=== PATIENT | female | born 1930 | race Caucasian/White ===

== ENCOUNTER 2019-03-07 03:28 | Emergency (ER) | payer OTHER, MEDICAID ==
[~2019-03-07] VITALS: Ht 157.5 cm; Wt 62.0 kg
[~2019-03-07 03:28] MED LIST: ACETAMINOPHEN325 M3 PO; ALBUTEROL2.5 MG/32; ALPHAGAN P10 ML; ALPHAGAN P10 ML OP; ALPHAGAN P5 ML OPHTHALMIC; ASA81BEC PO; ASPIRIN EC81 M1; ASPIRIN EC81 M1 PO; BUSPIRONE HCL5 MG PO; CALCIUM 500 +1 EAC5; CALCIUM 500 +1 EAC5 PO; CARVEDILOL12.5 MG PO; CARVEDILOL25 MG; CIPRO500 MG PO; COLACE100 MG PO; COREG CR20 MG PO; DOXYCYCLINE 10100 M1 PO; DUONEB 2.5-0.5 M3 ML INH; EASY IRON; EASY IRON PO; FISH OIL 1,0001 EAC5; FISH OIL 1,001000 M1 PO; FUROSEMIDE 20 M20 M1; HYDROCHLOROTHIA25 M1; HYDROCHLOROTHIA25 M1 PO; HYDROCODON-ACE1 EAC7 PO; HYDROCODONE-AP1 EAC6 PO; K-DUR 20 MEQ T20 MEQ PO; LASIX 20 MG TAB20 MG PO; LEVAQUIN 750 M750 MG PO; LEVOFLOXACIN250 MG PO; LIDOPATCH1 EACH TOP; LUMIGAN2.5 M1; LUMIGAN2.5 M1 OPHTHALMIC; MIRALAX17 GM PO; OXYGEN; PAIN & FEVER325 MG PO; POTASSIUM20; PREDNISONE; PULMICORT0.5 MG/2 M; PULMICORT0.5 MG/22 INH; SIMVASTATIN40 MG PO; TRAMADOL 50 MG50 MG PO; TRUSOPT5 ML; VESICARE10 M1 PO; VIT C-BIOFLAVO1 EACH PO; VITAMIN E400 UNIT PO; VITAMIN E600 UNIT PO; VITAMINC500 PO; VITCB500GO; VYTORIN 10-201 EACH; VYTORIN 10-201 EACH PO; XALATAN2.5 ML OPHTHALMIC; XARELTO10 MG PO; ZESTRIL10 MG PO; [UNRECOGNIZED DRUG - CODE] PO
[2019-03-07 06:38] VITALS: BP 170/64
--- NOTE | 2019-03-07 09:57 | EKG ---
[place] [address] ELECTROCARDIOGRAM REPORT Name: CLEMENTEJOSE ROBERTOPHOEBESARAH Lissett Room: [facility]#: [id number] Admission: 03/07/19 Attend Phys: Discharge: 03/07/19 Date of : 34 Report #: [id number] THIS REPORT FOR: //name// [facility] ED Test Date: 2019-03-07 Test Time: 05:16:29 Pat Name: SARAH COSTELLO Department: Room: Gender: F Maintenance Service Technician: LILIANA : 1930 Requested By: Brittany Mckeon Order Number: [id number] MD: Lewis Fonseca Measurements Intervals [place] Rate: 85 P: 83 PA: 173 QRS: 44 QRSD: 107 T: 2 QT: 383 QTc: 456 Interpretive Statements Sinus rhythm artifact noted Inferior infarct, age indeterminate Lateral leads are also involved Compared to ECG 05/24/2016 19:23:33 Myocardial infarct finding still present Electronically Signed On 03-07-2019 9:57:19 CDT by Lewis Fonseca [email or web address] <ELECTRONICALLY SIGNED> By: Lewis Fonseca MD, [facility] 03/07/19 0957 0516 Lewis Fonseca MD, [facility] /EPI
== END 2019-03-07 06:42 | disposition home or self-care (01) ==
LOC: M.ERS 03:28
DX: S61.412A Laceration without foreign body of left hand, initial encounter (principal); S00.83XA Contusion of other part of head, initial encounter; J44.9 Chronic obstructive pulmonary disease, unspecified; Z95.5 Presence of coronary angioplasty implant and graft; Z87.891 Personal history of nicotine dependence; W01.198A Fall on same level from slipping, tripping and stumbling with subsequent striking against other object, initial encounter; Y93.89 Activity, other specified; Y92.89 Other specified places as the place of occurrence of the external cause; Y99.8 Other external cause status

== ENCOUNTER 2019-03-22 15:54 | Emergency (ER) | payer MEDICARE, MEDICAID ==
[~2019-03-22] VITALS: Ht 152.4 cm; Wt 54.4 kg
[2019-03-22] MEDS ORDERED: NORCO 5-325 TA1 EAC1 PO (17:58)
[2019-03-22 18:22] VITALS: BP 183/76
== END 2019-03-22 18:21 | disposition home or self-care (01) ==
LOC: M.ERS 15:54
DX: S32.89XA Fracture of other parts of pelvis, initial encounter for closed fracture (principal); J44.9 Chronic obstructive pulmonary disease, unspecified; Z87.891 Personal history of nicotine dependence; W01.0XXA Fall on same level from slipping, tripping and stumbling without subsequent striking against object, initial encounter; Y93.89 Activity, other specified; Y92.89 Other specified places as the place of occurrence of the external cause; Y99.8 Other external cause status

== ENCOUNTER 2020-05-04 18:23 | Emergency (ER) | payer MEDICARE, MEDICAID ==
[~2020-05-04] VITALS: Ht 157.5 cm; Wt 45.4 kg
[~2020-05-04 18:23] MED LIST changes: +NORCO 5-325 TA1 EAC1 PO
[2020-05-04] MEDS ORDERED: TOVIAZ4 M1 PO (18:34)
[2020-05-04] MEDS ORDERED: ALPRAZOLAM XR3 MG PO (18:34)
[2020-05-04] MEDS ORDERED: CARVEDILOL12.5 MG PO (18:34)
[2020-05-04 19:30] LABS: ABSOLUTE LYMPHOCYTES 1.4 thou/uL (0.8-5.3); ABSOLUTE MONOCYTES 1.1 thou/uL (0.0-1.2); ABSOLUTE NEUTROPHILS 7.3 thou/uL (1.6-8.1); BASOPHILS 0.4 %; EOSINOPHILS 0.4 %; HEMATOCRIT 40.3 % (37.0-47.0); HEMOGLOBIN 13.3 gm/dL (12.0-15.0); MCH 31.4 pg (26.0-34.0); MCV 95.2 fL (80.0-100.0); MONOCYTES 11.1 %; MPV 8.4 fl. (7.2-11.1); NUCLEATED RBCS 0 /100WBC; PLATELET COUNT* 123 thou/uL (150-400); POLYS 74.1 %; RBC 4.23 mil/uL (4.20-5.00); RDW-CV 14.2 % (10.5-14.5); WBC 9.8 thou/uL (4.0-11.0)
[2020-05-04 19:43] LABS: ANION GAP < 0 mmol/L (7-16); BUN 22 mg/dL (7-18); CALCIUM 10.5 mg/dL (8.5-10.1); CHLORIDE 103 mmol/L (98-107); CO2 38 mmol/L (21-32); CREATININE 0.9 mg/dL (0.6-1.3); GLUCOSE 126 mg/dL (70-99); POTASSIUM 3.8 mmol/L (3.5-5.1); SODIUM 140 mmol/L (136-145)
[2020-05-04 19:44] LABS: APTT 30.5 Seconds (25.0-31.3); INR 1.1; PROTIME 11.9 Seconds (9.20-11.50)
[2020-05-04 19:52] LABS: ALBUMIN 2.5 g/dL (3.4-5.0); ALKALINE PHOSPHATASE 78 U/L (46-116); NT-PRO BRAIN NAT PEPTIDE 1679 pg/mL (<300); SGOT 8 U/L (15-37); SGPT 8 U/L (30-65); TOTAL BILIRUBIN 0.9 mg/dL (<0.1-1.0)
[2020-05-04 20:08] LABS: URINE BLOOD 3+ (Negative); URINE COLOR YELLOW; URINE GLUCOSE-RANDOM NEGATIVE (Negative); URINE KETONES NEGATIVE (Negative); URINE LEUKOCYTES-REFLEX TRACE (Negative); URINE NITRITE-REFLEX NEGATIVE (Negative); URINE PROTEIN 1+ (Negative); URINE SPECIFIC GRAVITY >= 1.030 (1.005-1.030)
[2020-05-04 20:09] LABS: ICTOTEST (BILI CONFIRMATORY) Negative (Negative); URINE BILIRUBIN 1+ (Negative); URINE CLARITY CLOUDY
[2020-05-04 20:14] LABS: SQUAMOUS 0-3 Few /LPF (0-3); URINE RBC 3-10 Few /HPF (0-2); URINE WBC-REFLEX 6-15 Few /HPF (0-5)
[2020-05-04 20:15] LABS: BACTERIA-REFLEX >30 Many /HPF (None Seen); CASTS None Seen /LPF (None Seen); CRYSTALS None Seen /LPF (None Seen)
[2020-05-04] MEDS ORDERED: CEFDINIR300 MG PO (20:29)
[2020-05-04 21:35] VITALS: BP 156/70
--- NOTE | 2020-05-05 10:48 | EKG ---
[place] [address] ELECTROCARDIOGRAM REPORT Name: SARAH COSTELLO Room: [facility]#: [id number] Admission: 05/04/20 Attend Phys: Discharge: 05/04/20 Date of : 34 Date of Service: 05/04/201948 Report #: [id number] THIS REPORT FOR: //name// [facility] ED Test Date: 2020-05-04 Test Time: 19:49:57 Pat Name: SARAH COSTELLO Department: Room: Gender: Prison Librarian: BRII : 1930 Requested By: Demond De La Torre Order Number: [id number] MD: Stoney Bah Measurements Intervals [place] Rate: 85 P: 69 [place]: 141 QRS: 31 QRSD: 104 T: 11 QT: 320 QTc: 381 Interpretive Statements Sinus rhythm Atrial premature complex Probable left ventricular hypertrophy Inferior infarct, old ST elevation, consider early repolarization compared to ECG 03/07/2019 05:16:29 Atrial premature complex(es) now present ST (T wave) deviation now present Electronically Signed On 05-05-2020 10:47:58 [employer] by Stoney Bah [email or web address] <ELECTRONICALLY SIGNED> By: Stoney Bah MD, FACC 05/05/20 1047 48 48 Stoney Bah MD, FACC /EPI
== END 2020-05-04 21:36 | disposition home or self-care (01) ==
LOC: M.ERS 18:23
PROVIDERS: Family Medicine
DX: J06.9 Acute upper respiratory infection, unspecified (principal); N39.0 Urinary tract infection, site not specified; Z20.828 Contact with and (suspected) exposure to other viral communicable diseases; E78.5 Hyperlipidemia, unspecified; J44.9 Chronic obstructive pulmonary disease, unspecified; Z95.5 Presence of coronary angioplasty implant and graft; Z87.891 Personal history of nicotine dependence

== ENCOUNTER 2020-05-06 16:57 | Inpatient (IN) | payer MEDICARE, MEDICAID ==
[~2020-05-06] VITALS: Ht 157.5 cm; Wt 47.9 kg
--- NOTE | ~2020-05-06 | EMS ---
[facility] [address] [place] [address] EMS Patient Care Report Name: LEYLA COSTELLO Room: [address] IN ..#: [id number] Admission: 05/06/20 Attend Phys: Tana Yeager MD Discharge: Date of : 32 Report #: [id number] THIS REPORT FOR: //name// Report Transmitted: 05/08/2020 11:44 EMS Care Summary [facility] [place] Incident [id number] @ 05/06/2020 15:59 Incident Location [address] [place] [address] Patient Leyla Costello Female, 89 Years 1930 Patient Address [address] [phone] Patient History Chronic Obstructive Pulmonary Disease (COPD),Hypertension (HTN), Patient Allergies No known allergies, Patient Medications Alprazolam, Toviaz, Carvedilol, cefdinir, Chief Complaint Respiratory distress Disposition Transported No Lights/[place] Dispatch Reason Breathing Problem Transported To [facility] Narrative Pt found alert but not oriented, sitting upright on side of her bed. Son stated that the pt told him she was SOB and he called 911. The pt initially stated that she was "fine" and did not want transport, though she was altered. Son stated that the pt was evaluated at the ER 2 days ago and she was sent home, [facility] [address] [place] [address] EMS Patient Care Report Name: LEYLA COSTELLO Room: [address] IN [facility]#: [id number] Admission: 05/06/20 Attend Phys: Tana Yeager MD Discharge: Date of : 32 Report #: [id number] diagnosed with UTI, given antibiotics (which she has been taking). Lungs and vitals assessed, pt was found to be hypoxic and moving minimal air in the lungs when auscultated. The pt was carried out to ems cot as she could barely stand. In ambulance, ekg monitor tech placed, iv established, fluids attached and titrated, transport commenced to [place]. En route, pt rested on EMS cot and was still altered after improved pulse oximetry. She denied any complaints though had a persistent non productive cough. Fluids continued and luns reassessed. Radio report called. Upon arrival, pt escorted inside. Verbal report given to UNEMPLOYMENT EXAMINER's. Care transferred. [facility]. Initial Vitals @16:15SpO2: 97, @16:15SpO2: 97, @16:16SpO2: 99, @16:25SpO2: 100, @16:30SpO2: 99, @16:35SpO2: 100, @16:40SpO2: 100, @16:45SpO2: 97, @16:48SpO2: 100, @16:18 @16:23Temp: 97.34F, @16:16P: 78,R: 22,BP: 205/89, @16:33P: 76,R: 20,BP: 172/78, @16:48P: 86,R: 20,BP: 201/92, @16:16GCS: 14, @16:33GCS: 14, @16:48GCS: 14, @16:05 @16:53 @16:24Glucose: 87, Assessments @16:05MENTAL:SKIN:HEENT:LUNG SOUNDS:ABDOMEN:PELVIS//GI:EXTREMITIES:PULSE:NEURO: Impression Acute Respiratory Distress (Dyspnea) Procedures @16:05Other - Medication - 3.000 Liters per Minute (l/min [fluid]) - Nasal CannulaResponse: Improved@16:21 cc () Site: Antecubital-LeftResponse: UnchangedSucceeded@16:183-Lead ECGResponse: UnchangedSucceeded Timeline 15:05,[place] [address] EMS Patient Care Report Name: LEYLA COSTELLO Room: [address] IN [facility]#: [id number] Admission: 05/06/20 Attend Phys: Tana Yeager MD Discharge: Date of : 32 Report #: [id number] 15:58,Dispatch Notified 15:58,Psap Call 15:59,Dispatched 15:59,En Route 16:03,On Scene 16:05,At Patient 16:05,Other - Medication - 3.000 Liters per Minute (l/min [fluid]) - Nasal Cannula,Response: Improved 16:05,BP: / M,PULSE: ,RR: R,SPO2: Ox,ETCO2: ,BG: ,PAIN: ,GCS: , 16:15,BP: / M,PULSE: ,RR: R,SPO2: 97 Ox,ETCO2: ,BG: ,PAIN: ,GCS: , 16:15,BP: / M,PULSE: ,RR: R,SPO2: 97 Ox,ETCO2: ,BG: ,PAIN: ,GCS: , 16:16,BP: / M,PULSE: ,RR: R,SPO2: 99 Ox,ETCO2: ,BG: ,PAIN: ,GCS: , 16:16,BP: 205/89 M,PULSE: 78,RR: 22 R,SPO2: Ox,ETCO2: ,BG: ,PAIN: ,GCS: , 16:16,BP: / M,PULSE: ,RR: R,SPO2: Ox,ETCO2: ,BG: ,PAIN: ,GCS: 14, 16:18,3-Lead ECG,Response: UnchangedSucceeded, 16:18,BP: / M,PULSE: ,RR: R,SPO2: Ox,ETCO2: ,BG: ,PAIN: ,GCS: , 16:21, cc Site: Antecubital-Left,Response: UnchangedSucceeded, 16:23,BP: / M,PULSE: ,RR: R,SPO2: Ox,ETCO2: ,BG: ,PAIN: ,GCS: , 16:24,Depart Scene 16:24,BP: / M,PULSE: ,RR: R,SPO2: Ox,ETCO2: ,B,PAIN: ,GCS: , 16:25,BP: / M,PULSE: ,RR: R,SPO2: 100 Ox,ETCO2: ,BG: ,PAIN: ,GCS: , 16:30,BP: / M,PULSE: ,RR: R,SPO2: 99 Ox,ETCO2: ,BG: ,PAIN: ,GCS: , 16:33,BP: 172/78 M,PULSE: 76,RR: 20 R,SPO2: Ox,ETCO2: ,BG: ,PAIN: ,GCS: , 16:33,BP: / M,PULSE: ,RR: R,SPO2: Ox,ETCO2: ,BG: ,PAIN: ,GCS: 14, 16:35,BP: / M,PULSE: ,RR: R,SPO2: 100 Ox,ETCO2: ,BG: ,PAIN: ,GCS: , 16:40,BP: / M,PULSE: ,RR: R,SPO2: 100 Ox,ETCO2: ,BG: ,PAIN: ,GCS: , 16:45,BP: / M,PULSE: ,RR: R,SPO2: 97 Ox,ETCO2: ,BG: ,PAIN: ,GCS: , 16:48,BP: / M,PULSE: ,RR: R,SPO2: 100 Ox,ETCO2: ,BG: ,PAIN: ,GCS: , 16:48,BP: 201/92 M,PULSE: 86,RR: 20 R,SPO2: Ox,ETCO2: ,BG: ,PAIN: ,GCS: , 16:48,BP: / M,PULSE: ,RR: R,SPO2: Ox,ETCO2: ,BG: ,PAIN: ,GCS: 14, 16:53,BP: / M,PULSE: ,RR: R,SPO2: Ox,ETCO2: ,BG: ,PAIN: ,GCS: , 16:54,At Destination 17:08,Call Closed Disclaimer v1.1 Copyright 2020 [employer] This EMS Care Summary contains data elements from the applicable legal record (which may be displayed differently). It is designed to provide pertinent information for the following purposes: continuity of care, clinical quality, and state data reporting. The complete legal record is available to ED staff and administrators of the receiving hospital in [employer] Patient Tracker. All data is provided "as is."
[~2020-05-06 16:57] MED LIST changes: +ALPRAZOLAM XR3 MG PO; +CEFDINIR300 MG PO; +TOVIAZ4 M1 PO
[2020-05-06 16:58] VITALS: BP 196/77
[2020-05-06 17:54] LABS: URINE BILIRUBIN NEGATIVE (Negative); URINE BLOOD 2+ (Negative); URINE CLARITY CLEAR; URINE COLOR YELLOW; URINE GLUCOSE-RANDOM NEGATIVE (Negative); URINE KETONES NEGATIVE (Negative); URINE LEUKOCYTES-REFLEX NEGATIVE (Negative); URINE NITRITE-REFLEX NEGATIVE (Negative); URINE PROTEIN NEGATIVE (Negative); URINE SPECIFIC GRAVITY >= 1.030 (1.005-1.030); URINE UROBILINOGEN 0.2 E.U./dl (0.2-1.0)
[2020-05-06 18:04] LABS: ABSOLUTE EOSINOPHILS 0.1 thou/uL (0.0-0.7); ABSOLUTE MONOCYTES 0.7 thou/uL (0.0-1.2); ABSOLUTE NEUTROPHILS 4.6 thou/uL (1.6-8.1); BASOPHILS 0.6 %; EOSINOPHILS 2.1 %; HEMATOCRIT 42.2 % (37.0-47.0); HEMOGLOBIN 13.6 gm/dL (12.0-15.0); LYMPHOCYTES 15.4 %; MCHC 32.1 g/dL (28.0-37.0); MCV 96.4 fL (80.0-100.0); MONOCYTES 10.7 %; MPV 8.3 fl. (7.2-11.1); NUCLEATED RBCS 0 /100WBC; PLATELET COUNT* 152 thou/uL (150-400); POLYS 71.2 %; RBC 4.38 mil/uL (4.20-5.00); RDW-CV 14.5 % (10.5-14.5); WBC 6.5 thou/uL (4.0-11.0)
[2020-05-06 18:05] LABS: SQUAMOUS >10 Many /LPF (0-3)
[2020-05-06 18:06] LABS: URINE WBC-REFLEX 0-5 Rare /HPF (0-5)
[2020-05-06 18:07] LABS: FINE GRANULAR CASTS 0-3 Few /LPF (None Seen); HYALINE CASTS 0-3 Few /LPF (None Seen); MUCUS >6 Heavy strn/LPF (None Seen)
[2020-05-06 18:08] LABS: CRYSTALS None Seen /LPF (None Seen)
[2020-05-06 18:15] LABS: ANION GAP < 0 mmol/L (7-16); BUN 14 mg/dL (7-18); CALCIUM 10.9 mg/dL (8.5-10.1); CHLORIDE 102 mmol/L (98-107); CO2 41 mmol/L (21-32); CREATININE 0.6 mg/dL (0.6-1.3); GLUCOSE 104 mg/dL (70-99); POTASSIUM 3.9 mmol/L (3.5-5.1); SODIUM 142 mmol/L (136-145)
[2020-05-06 18:21] LABS: APTT 29.6 Seconds (25.0-31.3)
[2020-05-06 18:25] LABS: ALBUMIN 2.5 g/dL (3.4-5.0); ALKALINE PHOSPHATASE 86 U/L (46-116); NT-PRO BRAIN NAT PEPTIDE 602 pg/mL (<300); SGOT 11 U/L (15-37); SGPT 10 U/L (30-65); TOTAL BILIRUBIN 0.7 mg/dL (<0.1-1.0); TOTAL PROTEIN 7.1 g/dL (6.4-8.2)
[2020-05-06 20:34] VITALS: BP 141/77
[2020-05-06 21:00] VITALS: BP 131/54
[2020-05-07] VITALS: BP 134/65
[2020-05-07 04:00] VITALS: BP 145/70
[2020-05-07 08:00] VITALS: BP 167/89
--- NOTE | 2020-05-07 12:48 | EKG ---
[place] [address] ELECTROCARDIOGRAM REPORT Name: SARAH COSTELLO Room: [address] IN ..#: [id number] Admission: 05/06/20 Attend Phys: Tana Yeager, Discharge: Date of : 32 Date of Service: 05/06/20 1704 Report #: [id number] THIS REPORT FOR: //name// [facility] ED Test Date: 2020-05-06 Test Time: 17:04:03 Pat Name: SARAH COSTELLO Department: Room: [facility] Gender: F Screen Printing Supervisor: MAYURI : 1930 Requested By: Neo Murrieta Order Number: [id number] MD: Stoney Bah Measurements Intervals [place] Rate: 89 P: 75 SC: 140 QRS: 28 QRSD: 101 T: 30 QT: 321 QTc: 391 Interpretive Statements Sinus rhythm Probable left atrial enlargement Inferior infarct, old Compared to ECG 05/04/2020 19:49:57 Atrial premature complex(es) no longer present Myocardial infarct finding still present Electronically Signed On 05-07-2020 12:48:17 CLIENT ONBOARDING ANALYST by Stoney Bah [email or web address] <ELECTRONICALLY SIGNED> By: Stoney Bah MD, FACC 05/07/20 1248 1704 1704 Stoney Bah MD, FACC /EPI
[2020-05-07 17:00] LABS: CALCIUM 9.8 mg/dL (8.5-10.1); CREATININE 0.6 mg/dL (0.6-1.3); PHOSPHORUS* 2.7 mg/dL (2.5-4.9)
[2020-05-07 20:26] VITALS: BP 176/88
[2020-05-08] VITALS: BP 155/67
[2020-05-08 04:12] VITALS: BP 148/73
[2020-05-08 04:58] LABS: CREATININE 0.6 mg/dL (0.6-1.3); POTASSIUM 3.7 mmol/L (3.5-5.1)
[2020-05-08 08:00] VITALS: BP 167/84
[2020-05-08 12:00] VITALS: BP 125/59
[2020-05-08 16:00] VITALS: BP 152/73
[2020-05-08 19:30] VITALS: BP 166/54
[2020-05-09 00:11] VITALS: BP 158/76
[2020-05-09 05:14] VITALS: BP 155/81
[2020-05-09 09:30] VITALS: BP 177/84
[2020-05-09 16:00] VITALS: BP 153/79
[2020-05-09 19:45] VITALS: BP 178/71
[2020-05-10] VITALS (7 sets, daily range): BP systolic 136–179; BP diastolic 30–76
[2020-05-11 04:19] VITALS: BP 153/66
[2020-05-11 09:00] VITALS: BP 133/52
[2020-05-11] MEDS ORDERED: HOME MEDICATION PO (10:59)
[2020-05-11] MEDS ORDERED: PRENATAL PO (10:59)
[2020-05-11 11:20] VITALS: BP 140/61
[2020-05-11 15:45] VITALS: BP 141/54
== END 2020-05-11 16:22 | DRG 871 ==
LOC: M.ERS 16:57 → M.2W 18:59 → M.TBA-ER 18:59 → M.2W 22:02
PROVIDERS: Emergency Medicine Emergency Medical Services; Internal Medicine; ADMIT Internal Medicine; ATTEND Internal Medicine
DX: A41.9 Sepsis, unspecified organism (principal); G93.41 Metabolic encephalopathy; E43 Unspecified severe protein-calorie malnutrition; N39.0 Urinary tract infection, site not specified; Z68.1 Body mass index [BMI] 19.9 or less, adult; E83.52 Hypercalcemia; J44.9 Chronic obstructive pulmonary disease, unspecified; E78.5 Hyperlipidemia, unspecified; R31.9 Hematuria, unspecified; I10 Essential (primary) hypertension; H54.8 Legal blindness, as defined in USA; I25.10 Atherosclerotic heart disease of native coronary artery without angina pectoris; Z20.828 Contact with and (suspected) exposure to other viral communicable diseases; Z90.49 Acquired absence of other specified parts of digestive tract; Z95.5 Presence of coronary angioplasty implant and graft; Z79.82 Long term (current) use of aspirin; Z79.899 Other long term (current) drug therapy; Z87.891 Personal history of nicotine dependence

== ENCOUNTER 2020-05-11 15:07 | Inpatient (IN) | payer MEDICARE, MEDICAID ==
[~2020-05-11] VITALS: Ht 162.6 cm; Wt 48.9 kg
[~2020-05-11 15:07] MED LIST changes: +HOME MEDICATION PO; +PRENATAL PO
[2020-05-11 17:00] VITALS: BP 170/82
--- NOTE | 2020-05-11 17:32 | NUR ---
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
[2020-05-11 19:00] VITALS: BP 167/79
--- NOTE | 2020-05-12 05:17 | NUR ---
ASSUMED PT CAR AT 1930. PT ALREADY IN BED AT SHIFT CHANGE. ALERT TO SELF, POLITE AND COOPERATIVE WITH CARES. ANSWERS QUESTIONS APPROPRIATELY. 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 ON 2L 02 PER NC. TURNED Q2. VOIDED PER BEDPAN X2, INCONTINENT X1. CALL LIGHT IN REACH, BED ALARM ON FOR SAFETY. HOURLY ROUNDING IN PROGRESS, WILL CONTINUE TO MONITOR.
[2020-05-12 05:57] LABS: HEMATOCRIT 37.9 % (37.0-47.0); HEMOGLOBIN 12.2 gm/dL (12.0-15.0); MCH 30.4 pg (26.0-34.0); MCHC 32.2 g/dL (28.0-37.0); MCV 94.3 fL (80.0-100.0); MPV 7.4 fl. (7.2-11.1); RBC 4.02 mil/uL (4.20-5.00); RDW-CV 14.1 % (10.5-14.5); WBC 5.5 thou/uL (4.0-11.0)
[2020-05-12 06:04] LABS: ANION GAP < 0 mmol/L (7-16); BUN 7 mg/dL (7-18); CALCIUM 10.5 mg/dL (8.5-10.1); CHLORIDE 105 mmol/L (98-107); CO2 43 mmol/L (21-32); CREATININE 0.7 mg/dL (0.6-1.3); GLUCOSE 100 mg/dL (70-99); POTASSIUM 3.1 mmol/L (3.5-5.1); SODIUM 146 mmol/L (136-145)
[2020-05-12 08:00] VITALS: BP 177/71
[2020-05-12 12:08] LABS: MAGNESIUM 1.7 mg/dL (1.8-2.4); PHOSPHORUS* 2.5 mg/dL (2.5-4.9)
[2020-05-12 12:09] LABS: CALCIUM 9.7 mg/dL (8.5-10.1); CREATININE 0.6 mg/dL (0.6-1.3); PHOSPHORUS* 2.5 mg/dL (2.5-4.9)
--- NOTE | 2020-05-12 15:42 | NUR ---
ASSUMMED CARE OF PT AT 0730, PT ALERT TO SELF, [place], VISUAL DEFECITS, PT TRANSFERS WITH ASSIST OF 1, GB WALKER, UP IN CHAIR AT INTERVALS, BM X 2 THIS SHIFT, VOIDS PER TOILET AND IS ALSO INCONTINENT, K+ AND mg+ REPLACED PER PROTOCAL, SALINE LOCK TO RIGHT HAND, PILLS CRUSHED IN PUDDING, DENIES PAIN, PARTICIPATED IN ALL THERAPIES, HOURLY ROUNDING COMPLETED, ASSESSMENT COMPLETE, WILL CONTINUE TO MONITOR.
--- NOTE | 2020-05-12 15:53 | NUR ---
RE: TEAM MEET'G PT AND RONALDO SCHUSTERR, BOTH, STATED THEY DONT HAVE ANY QUESTIONS AT THIS TIME.
[2020-05-12 19:00] VITALS: BP 164/69
[2020-05-12 22:22] LABS: MAGNESIUM 1.8 mg/dL (1.8-2.4)
--- NOTE | 2020-05-13 05:45 | NUR ---
ASSUMED PT CARE AT 1930. PT ALREADY IN BED AT SHIFT CHANGE. TAKES PILLS CRUSHED IN PUDDING. 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 PT SITS UP AND SETS OFF BED ALARM WHEN SHE NEEDS TO VOID. INCONTINENT OF URINE ONCE AND INCONTINENT OF STOOL ONCE. UP TO BSC TO VOID WITH ASSIST OF 1, GAIT BELT AND WALKER. CALL LIGHT IN REACH, BED ALARM ON FOR SAFETY. HOURLY ROUNDING IN PROGRESS, WILL CONTINUE TO MONITOR.
[2020-05-13 08:00] VITALS: BP 178/84
--- NOTE | 2020-05-13 10:00 | NUR ---
INITIAL ASSESSMENT: PATIENT ADMITTED TO THE ACUTE IN REHAB UNIT ON 05/11/20 WITH A DIAGNOIS OF ENCEPHALOPATHY. PT ALERT, BUT FORGETFUL. PT IS LEGALLY BLIND. PT RESIDES AT HOME WITH SON AND HE IS WITH HER 09/01 AND ASSIST HER NEEDED WITH CARES. PT USES A WALKER FOR MOBILITY. PT HAS 0 HX OF HH. PT HAS HX OF SNF AT [facility], BUT IS NOT OPEN TO SNF AT [facility]. CM ORIENTED PT AND HER DTR TO THE REHAB UNIT AND PROCESS, TEAM CONFRENCE MEETING, RESIDENTS RIGHTS INFO, AND TO THE ROLE OF CM. CM WILL REMAIN AVAILABLE TO ASSIST AND FOLLOW NEEDED.
[2020-05-13 11:54] VITALS: BP 111/70
--- NOTE | 2020-05-13 16:11 | NUR ---
ASSUMMED CARE OF PT AT 0730, PT ALERT, TRANSFERS WITH ASSIST OF 1, GB WALKER, FALLS ASLEEP EASILY IF NOT STIMULATED, APETITE POOR, TAKES ONLY A FEW BITES OF FOOD, REPOSTIONED EVERY 2 HOURS, UP IN CHAIR AT INTERVALS, SON HERE AND DOES NOT WANT HIS MOM UP IN CHAIR, REHAB EXPLAINED TO SON BUT HE DOES NOT GRASP WHY HIS MOTHER IS HERE, ASKING WHEN HE CAN TAKE HER HOME, BP ELEVATED THIS AM 178/84 MEDS GIVEN AND RECHECKED DOWN TO 111/70, PT DOES SET OFF ALARMS AT TIMES WHEN NEEDS TO GO TO THE BATHROOM, PT ABLE TO GET HERSELF TO SITTING POSITION ON EDGE OF BED, DOES NOT USE CALL LIGHT, BM X 3 THIS SHIFT, PT PARTICIPATED IN ALL THERAPIES, HOURLY ROUNDING COMPLETED, ASSESSMENT COMPLETE, REPOSTIONED EVERY 2 HOURS, WILL CONTINUE TO MONITOR.
[2020-05-13 19:00] VITALS: BP 151/66
[2020-05-14 10:05] VITALS: BP 133/62
[2020-05-14 20:16] VITALS: BP 181/88
--- NOTE | 2020-05-14 23:54 | NUR ---
ASSUMED CARE AT 1930. PATIENT RESTING IN BED. INCONTINENT OF URINE AND STOOL. RECTAL BLEEDING NOTED FROM EXTERNAL HEMORRHOIDS, SKIN CARE DONE, MOISTURE BARRIER APPLIED. BED ALARM SOUNDED, AND PATIENT WAS TRYING TO GET OOB TO VOID, BUT HAD ALREADY BEEN INCONTINENT OF URINE AND STOOL. DENIES PAIN. O2 2L/NC. BLIND. TAKES PILLS CRUSHED IN APPLESAUCE, FOLLOWED BY WATER. HOURLY ROUNDS CONTINUE. BED ALARM ON. CALL LITE IN REACH.
--- NOTE | 2020-05-15 05:47 | NUR ---
SLEPT EXCEPT WHEN AWAKENED FOR TURNS. INCONTINENT OF URINE AND STOOL WITH EACH TURN. SKIN CARE DONE. NO C/O PAIN. O2 2L/NC CONTINUES. TURNED Q2H. HOURLY ROUNDS CONTINUE. BED ALARM ON. CALL LITE IN REACH.
[2020-05-15 09:13] VITALS: BP 133/65
[2020-05-15 12:27] LABS: HEMATOCRIT 38.1 % (37.0-47.0); HEMOGLOBIN 12.2 gm/dL (12.0-15.0); MCH 30.5 pg (26.0-34.0); MCHC 31.9 g/dL (28.0-37.0); MCV 95.7 fL (80.0-100.0); MPV 7.8 fl. (7.2-11.1); NUCLEATED RBCS 0 /100WBC; PLATELET COUNT* 209 thou/uL (150-400); RBC 3.99 mil/uL (4.20-5.00); RDW-CV 14.5 % (10.5-14.5); WBC 13.1 thou/uL (4.0-11.0)
[2020-05-15 12:38] LABS: ALBUMIN 2.2 g/dL (3.4-5.0); ALKALINE PHOSPHATASE 75 U/L (46-116); ANION GAP < 0 mmol/L (7-16); BUN 13 mg/dL (7-18); CALCIUM 10.3 mg/dL (8.5-10.1); CHLORIDE 102 mmol/L (98-107); CO2 42 mmol/L (21-32); CREATININE 0.9 mg/dL (0.6-1.3); GLUCOSE 235 mg/dL (70-99); POTASSIUM 3.3 mmol/L (3.5-5.1); SGOT 12 U/L (15-37); SGPT 10 U/L (30-65); SODIUM 143 mmol/L (136-145); TOTAL BILIRUBIN 0.5 mg/dL (<0.1-1.0); TOTAL PROTEIN 6.4 g/dL (6.4-8.2)
[2020-05-15 13:02] LABS: ABSOLUTE LYMPHOCYTES 0.7 thou/uL (0.8-5.3); ABSOLUTE MONOCYTES 0.4 thou/uL (0.0-1.2); ABSOLUTE NEUTROPHILS 12.1 thou/uL (1.6-8.1); PLATELET ESTIMATE ADEQUATE
[2020-05-15 20:00] VITALS: BP 137/56
[2020-05-16 07:23] LABS: ANION GAP < 0 mmol/L (7-16); BUN 14 mg/dL (7-18); CALCIUM 9.7 mg/dL (8.5-10.1); CHLORIDE 105 mmol/L (98-107); CO2 42 mmol/L (21-32); CREATININE 0.6 mg/dL (0.6-1.3); GLUCOSE 94 mg/dL (70-99); POTASSIUM 3.9 mmol/L (3.5-5.1); SODIUM 144 mmol/L (136-145)
[2020-05-16 07:28] LABS: ALBUMIN 1.9 g/dL (3.4-5.0); ALKALINE PHOSPHATASE 57 U/L (46-116); SGOT 10 U/L (15-37); SGPT 10 U/L (30-65); TOTAL BILIRUBIN 0.4 mg/dL (<0.1-1.0); TOTAL PROTEIN 5.7 g/dL (6.4-8.2)
[2020-05-16 07:30] VITALS: BP 113/39
[2020-05-16 19:52] VITALS: BP 134/53
[2020-05-16 22:44] LABS: URINE BILIRUBIN NEGATIVE (Negative); URINE BLOOD TRACE (Negative); URINE CLARITY CLEAR; URINE COLOR DARK YELLOW; URINE GLUCOSE-RANDOM NEGATIVE (Negative); URINE KETONES NEGATIVE (Negative); URINE LEUKOCYTES NEGATIVE (Negative); URINE NITRITE POSITIVE (Negative); URINE PROTEIN TRACE (Negative); URINE UROBILINOGEN 0.2 E.U./dl (0.2-1.0)
--- NOTE | 2020-05-17 05:22 | NUR ---
ASSUMED PT CARE AT 1930. PT ALREADY IN BED ASLEEP AT SHIFT CHANGE. INCONTINENT OF STOOL AND URINE. PT IS [place] AND LEGALLY BLIND. PT DOES NOT USE CALL LIGHT AT NIGHT, SITS UP ON SIDE OF BED AND SETS OFF ALARM. UP TO BS WITH ASSIST OF ONE, GAIT BELT AND WALKER. TAKES PILLS CRUSHED IN APPLESAUCE. ON 2L 02 PER NC. CALL LIGHT IN REACH, BED ALARM ON FOR SAFETY. HOURLY ROUNDING IN PROGRESS, WILL CONTINUE TO MONITOR.
[2020-05-17 08:00] VITALS: BP 117/55
--- NOTE | 2020-05-17 17:16 | NUR ---
ASSUMMED CARE OF PT AT 0730, PT ALERT, [place] . VISUAL DEFECITS, PT OFFERS NO CONVERSATION, ANSWERS QUESTIONS WITH SHORT ANSERS OR NOD OF HEAD, DENIES PAIN, APETITE DECREASED NEEDS ENCOURAGEMENT TO EAT, TAKES FLUIDS WHEN OFFERED, DOES NOT USE CALL LIGHT WHEN NEEDS TO GET UP, SETS OFF ALARM, INCONTINENT AND ALSO AMBULATES TO BATHROOM, LOOSE STOOL X 2, 02 ON AT 2L PER NC WITH SATS OF 99%, UP IN CHAIR FOR INTERVALS, REPOSTIONED EVERY 2 HOURS, PARTICPATED IN ALL THERAPIES, HOURLY ROUNDING COMPLETED, ASSESSMENT COMPLETE, WILL CONTINUE TO MONITOR.
[2020-05-17 20:20] VITALS: BP 152/56
--- NOTE | 2020-05-18 05:18 | NUR ---
ASSUMED PT CARE AT 1930. PT SLEEPING IN BED, AWAKENED WITH ASSESSMENT AND EVENING MEDS. MEDS GIVEN CRUSHED IN PUDDING. PT DENIES PAIN, WILL ANSWER SIMPLE YES OR NO QUESTIONS. [place] AND LEGALLY BLIND. ON 2L 02 PER NC. PT SLEPT WELL OVERNIGHT. SET OFF BED ALARM ONCE. VOID X1, NO STOOL THIS SHIFT. PT TURNED Q2. CALL LIGHT IN REACH, BED ALARM ON FOR SAFETY. HOURLY ROUNDING IN PROGRESS, WILL CONTINUE TO MONITOR.
[2020-05-18 08:00] VITALS: BP 132/59
[2020-05-18 15:33] LABS: HEMATOCRIT 36.9 % (37.0-47.0); HEMOGLOBIN 11.7 gm/dL (12.0-15.0); MCH 30.3 pg (26.0-34.0); MCHC 31.7 g/dL (28.0-37.0); MCV 95.6 fL (80.0-100.0); MPV 7.9 fl. (7.2-11.1); RBC 3.86 mil/uL (4.20-5.00); RDW-CV 14.4 % (10.5-14.5); WBC 6.7 thou/uL (4.0-11.0)
--- NOTE | 2020-05-18 16:30 | NUR ---
ASSUMMED CARE OF PT AT 0730, PT ALERT, FORGETFUL, TRANSFERS WITH ASSIST OF 1, GB WALKER, AMB TO BATHROOM, VOIDS AND IS ALSO INCONTINENT OF BOWEL AND BLADDER AT TIMES, LOOSE STOOLS X2, O2 ON AT 2 LITERS WITH SAT OF 99%, APETITE DECREASED BUT DOES TAKE ADEQUATE FOOD AND LFUIDS WHEN OFFERED, SON VISITING THIS AM, DENIES PAIN, DONTACTED DR LAGUNAS PER DR HUNTLYE REQUEST, CBC COMPLETED, PT REPOSTIONED EVERY 2 HOURS, PARTICIPATED IN ALL THERAPIES, HOURLY ROUNDING COMPLETED, ASSESSMENT COMPLETED, WILL CONTINUE TO MONITOR.
[2020-05-18 19:00] VITALS: BP 126/54
--- NOTE | 2020-05-19 05:06 | NUR ---
ASSUMED PT CARE AT 1930. PT IN BED ASLEEP, AWAKENED FOR ASSESSMENT AND HS MEDS. PT IS [place] AND LEGALLY BLIND. TRANSFERS WITH ASSIST OF 1, GAIT BELT AND WALKER. UP TO BSC TO VOID. RESPOSITIONED Q2 HOURS. CALL LIGHT IN REACH, BED ALARM ON FOR SAFETY. HOURLY ROUNDING IN PROGRESS, WILL CONTINUE TO MONITOR.
[2020-05-19 08:45] VITALS: BP 141/56
--- NOTE | 2020-05-19 16:04 | NUR ---
CM SPOKE TO THE PT AND HER SON TO DISCUSS ANY QUESTIONS OR CONCERNS THAT THEY MAY HAVE FOR TOMORROWS TEAM CONFRENCE MEETING. PT AND SON HAVE NO QUESTIONS OR CONCERNS AT THIS TIME. CM WILL F/U WITH PT AND HER SON AFTER TOMORROWS MEETING.
--- NOTE | 2020-05-19 17:24 | NUR ---
ASSUMED CARE OF PATIENT AT 0730. VITAL SIGNS STABLE ON 2L O2 NASAL CANULA. DENIES PAIN AND NAUSEA AT THIS TIME. BOWEL MOVEMENT TODAY. TOLERATED MORNING AND AFTERNOON THERAPIES. UP TO CHAIR FOR MEALS. FALL PRECAUTIONS IN PLACE AND BED ALARM ON. HOURLY ROUNDS MAINTAINED THROUGHOUT THE SHIFT. CALL LIGHT WITHIN REACH. NURSING WILL CONTINUE TO MONITOR.
[2020-05-19 19:00] VITALS: BP 149/52
[2020-05-20 05:38] LABS: HEMATOCRIT 32.5 % (37.0-47.0); HEMOGLOBIN 10.5 gm/dL (12.0-15.0); MCH 30.8 pg (26.0-34.0); MCHC 32.4 g/dL (28.0-37.0); MCV 95.1 fL (80.0-100.0); MPV 8.1 fl. (7.2-11.1); RBC 3.42 mil/uL (4.20-5.00); RDW-CV 14.8 % (10.5-14.5); WBC 5.2 thou/uL (4.0-11.0)
[2020-05-20 06:04] LABS: ANION GAP < 0 mmol/L (7-16); BUN 12 mg/dL (7-18); CALCIUM 9.2 mg/dL (8.5-10.1); CHLORIDE 106 mmol/L (98-107); CO2 39 mmol/L (21-32); CREATININE 0.6 mg/dL (0.6-1.3); GLUCOSE 96 mg/dL (70-99); POTASSIUM 3.8 mmol/L (3.5-5.1); SODIUM 143 mmol/L (136-145)
--- NOTE | 2020-05-20 06:11 | NUR ---
ASSUMED PT CARE AT 1930. ASSESSMENT COMPLETED CHARTED. ABLE TO MAKE NEEDS KNOWN. UP WITH 1 ASSIST TO BATHROOM. [place] AND LEGALLY BLIND, GETS AGGITATED AT TIMES WHEN FIRST WAKING UP. NO C/O PAIN OR DISCOMFORT. RESTING IN BED AT THIS TIME. WILL CONTINUE TO MONITOR.
[2020-05-20 08:00] VITALS: BP 146/66
--- NOTE | 2020-05-20 17:13 | NUR ---
TEAM CONFRENCE MEETING HELD TODAY. CM AND PHYSICIAN SPOKE TO THE PT AND HER SON TO DISCUSS MEETING AND PLAN TO ARRANGE FAMILY TRAINING WITH SON AND D/C PT MONDAY HOME WITH SON AND HH. PT'S SON IN AGREEMENT AND PLANS TO COME TO THE UNIT TOMORROW AT 1300 FOR FAMILY TRAINING. CM TO INFORM THERAPIES OF THIS. CM WILL REMAIN AVAILABLE TO ASSIST AND FOLLOW NEEDED.
[2020-05-20 19:30] VITALS: BP 125/61
--- NOTE | 2020-05-21 06:27 | NUR ---
PATIENT SLEPT MOST OF THE NIGHT. PATIENT HAS BEEN INCONTINENT DURING THE NIGHT. PATIENT HAD NO COMPLAINTS OF PAIN. WILL CONTINUE TO MONITOR.
[2020-05-21 07:30] VITALS: BP 126/58
[2020-05-21 16:35] VITALS: BP 126/58
[2020-05-21 20:00] VITALS: BP 125/59
--- NOTE | 2020-05-22 05:03 | NUR ---
PT A&O X 2-3, FORGETFUL. MEDS GIVEN ORDERED. ON 2-2.5L OF O2 BY NC. NO C/O PAIN. PT SLEPT MOST OF THE NIGHT. CALL LIGHT WITHIN REACH. BED ALARM ON. WILL CONTINUE TO MONITOR.
[2020-05-22 08:30] VITALS: BP 126/62
[2020-05-22] MEDS ORDERED: CEFDINIR300 MG PO (11:38)
[2020-05-22] MEDS ORDERED: FLAGYL500 M1 PO (11:38)
[2020-05-22 12:47] VITALS: BP 126/58
[2020-05-22 14:56] VITALS: BP 126/58
--- NOTE | 2020-05-22 14:57 | NUR ---
D/T [employer] FAX MACHINE BEING BUSY FOR HOURS, JOSE JUAN MEET CM AT [facility] TO RECEIVE ORDERS, AND AT THAT TIME STATED, "WERE GOOD TO GO WITH THIS ONE." JOSE JUAN STATED THEY ARE ABLE TO ACCEPT PT ONTO SERVICE. PT RN NOTIFIED. CM EXPLAINED TO PT AND HER SON THAT [facility] WILL CONTACT PT TO ARRANGE VISITS.
--- NOTE | 2020-05-22 17:06 | NUR ---
ASSESSMENT COMPLETED DOCUMENTED THIS MORNING. PATIENT CONTINUES TO PARTICIPATE WITH THERAPY UNTIL SHE DISCHARGES TODAY. SON IN TO VISIT AND THEN LEFT AROUND LUNCHTIME. TOLD PATIENT HE WOULD BE BACK LATER HE HAD TO GO GET A TANK OF 02 FOR THE RIDE HOME. 1630 REC'D CALL AT THE DESK FROM [employer] LOOKING FOR PATIENT TO SET UP HOME HEALTH. DAUGHTER CORRY HAD ALSO, CALLED EARLIER WONDERING IF PATIENT HAD BEEN DCD. 1645 CALLED CORRY AND INFORMED HER THAT MALDONADO HAD LEFT EARLIER IN THE DAY AND HAD NOT RETURNED, PATIENT WAS BECOMING UPSET AND ANXIOUS. 1700 SON MALDONADO RETURNED TO M[employer] TEACHER PATIENT, GAVE NURSE CORRECT PHONE NUMBER AND STATED, "DON'T CALL MY SISTER SHE DOESN'T KNOW ANYTHING THAT IS GOING ON WITH MY MOM." PATIENT DCD VIA W/C ACCOMPANIED BY SON AND MARY JO CASANOVA
[2020-05-22 17:22] VITALS: BP 126/58
== END 2020-05-22 17:00 | disposition home health service (06) | DRG 70 ==
LOC: M.REH 15:07
PROVIDERS: Internal Medicine; ADMIT Physical Medicine & Rehabilitation; ATTEND Physical Medicine & Rehabilitation
DX: G93.41 Metabolic encephalopathy (principal); A41.9 Sepsis, unspecified organism; J69.0 Pneumonitis due to inhalation of food and vomit; E43 Unspecified severe protein-calorie malnutrition; N39.0 Urinary tract infection, site not specified; Z68.1 Body mass index [BMI] 19.9 or less, adult; R13.10 Dysphagia, unspecified; I25.10 Atherosclerotic heart disease of native coronary artery without angina pectoris; E78.5 Hyperlipidemia, unspecified; J44.9 Chronic obstructive pulmonary disease, unspecified; H54.8 Legal blindness, as defined in USA; I10 Essential (primary) hypertension; R53.81 Other malaise; R73.9 Hyperglycemia, unspecified; E83.52 Hypercalcemia; Z95.5 Presence of coronary angioplasty implant and graft; Z87.891 Personal history of nicotine dependence

== ENCOUNTER 2020-08-04 16:40 | Inpatient (IN) | payer MEDICARE, MEDICAID ==
[~2020-08-04] VITALS: Ht 152.4 cm; Wt 43.1 kg
--- NOTE | ~2020-08-04 | EMS ---
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 MOHINI 312 ARRIVED ON SCENE WITHOUT INCIDENT. THE PATIENT WHO GOES BY SARAH WAS FOUND ALERT AND ORIENTED TO SELF IN A CHAIR. FAMILY STATED THAT SARAH WENT UNRESPONSIVE BUT WAS NOW AWAKE. [address] [place] [address] EMS Patient Care Report Name: SARAH COSTELLO Room: [address] IN [facility]#: [id number] Admission: 08/04/20 Attend Phys: Jelani Caballero Discharge: Date of : 34 Report #: [id number] FAMILY WAS NOT ABLE TO GIVE A LOT OF MEDICAL HISTORY. SARAH IS CARRIED TO THE COT WHERE THE STRAPS ARE FASTENED AND THE RAILS ARE PLACED IN THE UPRIGHT POSITION. THE COT IS SECURED IN THE BACK OF THE AMBULANCE WITH THE DOORS CLOSED. VITALS ARE TAKEN VASCULAR ACCESS IS OBTAINED. MOHINI Guidry BEGAN TRANSPORT. EN ROUTE SARAH REST ON THE COT IN NO APPARENT DISTRESS. VITALS ARE MONITORED MEDICAL HISTORY AND ALLERGIES ARE RECEIVED. RADIO REPORT IS GIVEN TO THE HOSPITAL WITH NO QUESTIONS OR ORDERS RECEIVED. MOHINI Guidry ARRIVED AT DESTINATION WITHOUT INCIDENT. PATIENT CARE AND REPORT IS GIVEN TO STAFF SARAH IS MOVED TO THE BED IN ROOM 16. [facility] CLEAR. FLY LA, EMT-P Initial Vitals @16:05SpO2: 92, @16:15SpO2: 98, @16:25SpO2: 100, @16:26 @16:05P: 102,R: 19,BP: 168/91, @16:15P: 96,R: 12,BP: 163/90, @16:25P: 97,R: 17,BP: 177/84, @16:45PfFB9: 52, @16:71PkJQ0: 44, @16:22PxMW6: 54, @16:05GCS: 15, @16:15GCS: 15, @16:25GCS: 15, @15:59 @16:10Glucose: 124, Assessments @15:59MENTAL:SKIN:HEENT:LUNG SOUNDS:ABDOMEN:PELVIS//GI:EXTREMITIES:PULSE:NEURO: Impression Altered Mental Status Procedures @16:07Other - Medication - 2.000 Liters per Minute (l/min [fluid]) - Nasal CannulaResponse: Improved@16:09 cc () Site: Antecubital-LeftResponse: UnchangedSucceeded@16:05Digital respired carbon dioxide monitoring (regime/therapy)Response: UnchangedSucceeded@16:15Digital respired carbon dioxide monitoring (regime/therapy)Response: UnchangedSucceeded@16:25Digital respired carbon dioxide monitoring (regime/therapy)Response: UnchangedSucceeded@16:263-Lead ECGResponse: UnchangedSucceeded Timeline 15:49,[place] [address] EMS Patient Care Report Name: SARAH COSTELLO Lissett Room: [address]#: [id number] Admission: 08/04/20 Attend Phys: Jelani Caballero Discharge: Date of : 34 Report #: [id number] 15:49,Dispatch Notified 15:49,Psap Call 15:49,Dispatched 15:49,En Route 15:57,On Scene 15:59,At Patient 15:59,BP: / M,PULSE: ,RR: R,SPO2: Ox,ETCO2: ,BG: ,PAIN: ,GCS: , 16:05,Digital respired carbon dioxide monitoring (regime/therapy),Response: UnchangedSucceeded, 16:05,BP: / M,PULSE: ,RR: R,SPO2: 92 Ox,ETCO2: ,BG: ,PAIN: ,GCS: , 16:05,BP: 168/91 M,PULSE: 102,RR: 19 R,SPO2: Ox,ETCO2: ,BG: ,PAIN: ,GCS: , 16:05,BP: / M,PULSE: ,RR: R,SPO2: Ox,ETCO2: 52 ,BG: ,PAIN: ,GCS: , 16:05,BP: / M,PULSE: ,RR: R,SPO2: Ox,ETCO2: ,BG: ,PAIN: ,GCS: 15, 16:07,Other - Medication - 2.000 Liters per Minute (l/min [fluid]) - Nasal Cannula,Response: Improved 16:09, cc Site: Antecubital-Left,Response: UnchangedSucceeded, 16:10,BP: / M,PULSE: ,RR: R,SPO2: Ox,ETCO2: ,B,PAIN: ,GCS: , 16:12,Depart Scene 16:15,Digital respired carbon dioxide monitoring (regime/therapy),Response: UnchangedSucceeded, 16:15,BP: / M,PULSE: ,RR: R,SPO2: 98 Ox,ETCO2: ,BG: ,PAIN: ,GCS: , 16:15,BP: 163/90 M,PULSE: 96,RR: 12 R,SPO2: Ox,ETCO2: ,BG: ,PAIN: ,GCS: , 16:15,BP: / M,PULSE: ,RR: R,SPO2: Ox,ETCO2: 44 ,BG: ,PAIN: ,GCS: , 16:15,BP: / M,PULSE: ,RR: R,SPO2: Ox,ETCO2: ,BG: ,PAIN: ,GCS: 15, 16:25,Digital respired carbon dioxide monitoring (regime/therapy),Response: UnchangedSucceeded, 16:25,BP: / M,PULSE: ,RR: R,SPO2: 100 Ox,ETCO2: ,BG: ,PAIN: ,GCS: , 16:25,BP: 177/84 M,PULSE: 97,RR: 17 R,SPO2: Ox,ETCO2: ,BG: ,PAIN: ,GCS: , 16:25,BP: / M,PULSE: ,RR: R,SPO2: Ox,ETCO2: 54 ,BG: ,PAIN: ,GCS: , 16:25,BP: / M,PULSE: ,RR: R,SPO2: Ox,ETCO2: ,BG: ,PAIN: ,GCS: 15, 16:26,3-Lead ECG,Response: UnchangedSucceeded, 16:26,BP: / M,PULSE: ,RR: R,SPO2: Ox,ETCO2: ,BG: ,PAIN: ,GCS: , 16:38,At Destination 16:55,Call Closed Disclaimer v1.1 Copyright 2020 [employer] This EMS Care Summary contains data elements from the applicable legal record (which may be displayed differently). It is designed to provide pertinent information for the following purposes: continuity of care, clinical quality, and state data reporting. The complete legal record is available to ED staff and administrators of the receiving hospital in [employer] Patient Tracker. All data is provided "as is."
[~2020-08-04 16:40] MED LIST changes: +FLAGYL500 M1 PO
[2020-08-04 17:21] LABS: ABSOLUTE BASOPHILS 0.1 thou/uL (0.0-0.2); ABSOLUTE LYMPHOCYTES 1.2 thou/uL (0.8-5.3); ABSOLUTE MONOCYTES 0.7 thou/uL (0.0-1.2); ABSOLUTE NEUTROPHILS 7.4 thou/uL (1.6-8.1); BASOPHILS 0.7 %; EOSINOPHILS 0.3 %; HEMOGLOBIN 13.7 gm/dL (12.0-15.0); LYMPHOCYTES 13.2 %; MCH 29.5 pg (26.0-34.0); MCHC 32.7 g/dL (28.0-37.0); MCV 90.3 fL (80.0-100.0); MONOCYTES 7.2 %; MPV 8.1 fl. (7.2-11.1); NUCLEATED RBCS 0 /100WBC; PLATELET COUNT* 190 thou/uL (150-400); POLYS 78.6 %; RBC 4.65 mil/uL (4.20-5.00); RDW-CV 14.2 % (10.5-14.5); WBC 9.5 thou/uL (4.0-11.0)
[2020-08-04 17:31] LABS: CALCIUM 9.6 mg/dL (8.5-10.1)
[2020-08-04 17:32] LABS: APTT 28.3 Seconds (25.0-31.3); PROTIME 11.1 Seconds (9.20-11.50)
[2020-08-04 17:39] LABS: URINE BILIRUBIN NEGATIVE (Negative); URINE BLOOD NEGATIVE (Negative); URINE CLARITY CLEAR; URINE COLOR YELLOW; URINE GLUCOSE-RANDOM NEGATIVE (Negative); URINE KETONES NEGATIVE (Negative); URINE LEUKOCYTES-REFLEX NEGATIVE (Negative); URINE NITRITE-REFLEX NEGATIVE (Negative); URINE PROTEIN NEGATIVE (Negative); URINE SPECIFIC GRAVITY 1.015 (1.005-1.030); URINE UROBILINOGEN 0.2 E.U./dl (0.2-1.0)
[2020-08-04 17:44] LABS: ALBUMIN 2.6 g/dL (3.4-5.0); CK-MB MASS 0.6 ng/mL (<0.5-3.6); TOTAL BILIRUBIN 0.7 mg/dL (<0.1-1.0); TOTAL PROTEIN 6.7 g/dL (6.4-8.2)
[2020-08-04 17:47] LABS: POTASSIUM 2.7 mmol/L (3.5-5.1)
[2020-08-04 20:00] VITALS: BP 128/68; BP 167/80
[2020-08-05 04:14] VITALS: BP 141/71
--- NOTE | 2020-08-05 10:28 | EKG ---
[place] [address] ELECTROCARDIOGRAM REPORT Name: SARAH COSTELLO Room: [address] ADM IN ..#: [id number] Admission: 08/04/20 Attend Phys: Joel Whitaker Discharge: Date of : 34 Date of Service: 08/04/20 1703 Report #: [id number] THIS REPORT FOR: //name// [facility] ED Test Date: 2020-08-04 Test Time: 17:03:21 Pat Name: SARAH COSTELLO Department: Room: [facility] Gender: F Photostat Operator: CCD : 1930 Requested By: Demond De La Torre Order Number: [id number] MD: Lewis Fonseca Measurements Intervals [place] Rate: 98 P: 89 PA: 183 QRS: 60 QRSD: 111 T: 68 QT: 355 QTc: 454 Interpretive Statements Sinus rhythm Right atrial enlargement 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 08/05/20 1028 170 170 Lewis Fonseca MD, [facility] /EPI
[2020-08-05 11:28] LABS: CALCIUM 10.3 mg/dL (8.5-10.1); CREATININE 0.9 mg/dL (0.6-1.3)
[2020-08-05 11:30] LABS: POTASSIUM 2.8 mmol/L (3.5-5.1)
[2020-08-05 11:32] LABS: MAGNESIUM 1.7 mg/dL (1.8-2.4); PHOSPHORUS* 2.6 mg/dL (2.5-4.9)
[2020-08-05 11:53] VITALS: BP 124/74
[2020-08-05 19:20] VITALS: BP 143/75
[2020-08-06] VITALS: BP 138/67
[2020-08-06 04:32] LABS: CALCIUM 10.1 mg/dL (8.5-10.1); CREATININE 0.8 mg/dL (0.6-1.3); MAGNESIUM 1.8 mg/dL (1.8-2.4); PHOSPHORUS* 2.2 mg/dL (2.5-4.9); POTASSIUM 4.2 mmol/L (3.5-5.1)
[2020-08-06 08:00] VITALS: BP 149/70
[2020-08-06] MEDS ORDERED: CIPRO500 MG PO (10:04)
[2020-08-06 14:04] VITALS: BP 149/70
== END 2020-08-06 14:10 | disposition home health service (06) | DRG 640 ==
LOC: M.ERS 16:40 → M.2W 17:44 → M.TBA-ER 17:44 → M.2W 19:43
PROVIDERS: Family Medicine; ADMIT Internal Medicine; ATTEND Internal Medicine
DX: E87.6 Hypokalemia (principal); G93.41 Metabolic encephalopathy; E43 Unspecified severe protein-calorie malnutrition; N39.0 Urinary tract infection, site not specified; Z68.1 Body mass index [BMI] 19.9 or less, adult; Z20.822 Contact with and (suspected) exposure to COVID-19; I10 Essential (primary) hypertension; J44.9 Chronic obstructive pulmonary disease, unspecified; H54.8 Legal blindness, as defined in USA; E78.5 Hyperlipidemia, unspecified; I25.10 Atherosclerotic heart disease of native coronary artery without angina pectoris; F03.90 Unspecified dementia, unspecified severity, without behavioral disturbance, psychotic disturbance, mood disturbance, and anxiety; Z95.5 Presence of coronary angioplasty implant and graft; Z87.81 Personal history of (healed) traumatic fracture; Z87.891 Personal history of nicotine dependence

== ENCOUNTER 2020-09-13 12:53 | Inpatient (IN) | payer MEDICARE, MEDICAID ==
[~2020-09-13] VITALS: Ht 149.9 cm; Wt 58.4 kg
--- NOTE | ~2020-09-13 | EMS ---
[address] [address] EMS Patient Care Report Name: LEYLA COSTELLO Room: [place] [address] ADM IN [facility]#: [id number] Admission: 09/13/20 Attend Phys: Jelani Caballero Discharge: Date of : 34 Report #: [id number] THIS REPORT FOR: //name// Report Transmitted: 09/13/2020 17:03 EMS Care Summary [facility] [place] Incident [id number] @ 09/13/2020 11:58 Incident Location [address] [place] [address] Patient Leyla Costello Female, 89 Years 1930 Patient Address [address] [place] [address] Patient History Hypertension (HTN), Patient Allergies No known allergies, Patient Medications Carvedilol, Chief Complaint Altered Level of Consciousness Disposition Transported No Lights/[place] Dispatch Reason Sick Person Transported To [facility] Narrative [facility] ALS EMS unit 311 dispatched to above location along with [facility] ([facility]) Pumper 3 in reference to altered mental status. Upon arrival, [facility] personnel are with patient and patients son. Patient is an 89 y/o female. Patient is found lying sideways in hospital type bed with [facility] [address] [facility] [place] [place] [address] EMS Patient Care Report Name: LEYLA COSTELLO Room: [address] IN [facility]#: [id number] Admission: 09/13/20 Attend Phys: Jelani Caballero Discharge: Date of : 32 Report #: [id number] her right side facing the foot of the bed. Patient airway is patent, breathing is of adequate depth, rate and quality. Circulation appears self maintained. Patients skin is pale, dry and hot / warm to the touch. Patient is alert, however is only repeating her sons name (Drake). Patients son, who appears to be primary caregivers homecare states that she is "acting weird". Son states that she normally doesn't act like this, normally talkative and when he checked on her he found her like this and just "babbling". Son states that she has been "pretty much bed ridden since she got home from the hospital the last time". Patient has arm band indicating fall risk and an admission band dating 07/31/2020. When asked why she was in the hospital the son states that she has had urinary tract infections, but has never acted like this. Son was asked if the patient had a history of dementia or Alzheimer's, and son states that she has never been diagnosed with either "but the doctor had suggested it a couple of times". Patients GCS of 12 (4,3,5). House appears to be clean, nothing to place patient in immediate danger. Patients son appears to be frustrated as she keeps calling out his name and he forecfully exclaimed "What mom" to the patient. Patient continues to just call out his name, no other words. Patients son states that the patient is only on one medication, and he can't get her to take the medication now (Carvedilol). Patients pupils are assessed as noted. Patients vital signs are as noted. Patient does not have capacity to complete a field screening for stroke scale, however is moving bilateral extremites equally. Due to inability to maneuver stretcher or other equipment into the house from the doorway due to layout of the home, patient must be carried out using a megamover. Patient was straightened up in the bed and patients brief that she has on as well as all bedding is saturated in urine. Son states that he's not been able to change her due to the way that shes been acting. Patient is log rolled onto left side and megamover is placed under patient. Patient is log rolled back to right side and megamover is flattened out under patient. Patient is carried outside x 2 people without incident to awaiting stretcher. Patient is placed in a semi fowlers position and secured via rails x 2 straps x 5. Patient is moved to ambulance on stretcher, loaded and secured without incident. Patients vital signs repeated as noted. Patient is placed on rn cardiac cath showing sinus tachycardia. Patient is hypertensive. IV is established on first attempt in left AC with 20g using aseptic technique. Site is flushed with 10ml of normal saline with no signs of infiltration. Site secured with veinguard and coban dressing due to patient moving extremities, grabbing at equipment and extremely dry skin which is impairing the ability of the adhesive from the veinguard to stick to patient. Enroute to [facility], vital signs repeated as noted. [facility] contacted via radio with report, no orders given. Patient has no changes during transport. Upon arrival at [facility], patient is moved to ED bed 3. Patient is sheet transferred from EMS stretcher to ED bed x 4 people without incident. Patient is placed in a semi fowlers position via rails x 2. Patient care is transferred to staff with verbal report and nurses signature. Staff is informed that it is crews belief that patient may need placement at this time as son being primary home care companion has not been able to get the patient to take her [facility] [address] [place] [address] EMS Patient Care Report Name: LEYLA COSTELLO Room: [address] IN [facility]#: [id number] Admission: 09/13/20 Attend Phys: Jelani Caballero Discharge: Date of : 32 Report #: [id number] medications and due to patients current medical status. ED staff agrees and advised to notify hotline, as they would be doing the same for assistance in placement until medical status could be resolved. Department of [facility] report was completed (Confirmation code [id number]). End of report. Ifeanyi Nguyễn NRP. Initial Vitals @12:15SpO2: 98, @12:19 @12:20P: 140,R: 16,BP: 220/112, @12:28P: 142,R: 16,BP: 216/112, @12:13P: 146,R: 16, @12:20GCS: 12, @12:28GCS: 12, @12:13GCS: 12, @12:09 @12:25Glucose: 167, Assessments @12:09MENTAL:SKIN:HEENT:LUNG SOUNDS:ABDOMEN:PELVIS//GI:EXTREMITIES:PULSE:NEURO: Impression Altered Mental Status Procedures @12:25 cc () Site: Antecubital-LeftResponse: UnchangedSucceeded@12:193-Lead ECGResponse: UnchangedSucceeded Timeline 11:,Call Received :58,Dispatch Notified 11:58,Psap Call 11:58,Dispatched 11:59,En Route 12:06,On Scene 12:09,At Patient 12:09,BP: / M,PULSE: ,RR: R,SPO2: Ox,ETCO2: ,BG: ,PAIN: ,GCS: , 12:13,BP: / M,PULSE: 146,RR: 16 R,SPO2: Ox,ETCO2: ,BG: ,PAIN: ,GCS: , 12:13,BP: / M,PULSE: ,RR: R,SPO2: Ox,ETCO2: ,BG: ,PAIN: ,GCS: 12, 12:15,BP: / M,PULSE: ,RR: R,SPO2: 98 Ox,ETCO2: ,BG: ,PAIN: ,GCS: , 12:19,3-Lead ECG,Response: UnchangedSucceeded, 12:19,BP: / M,PULSE: ,RR: R,SPO2: Ox,ETCO2: ,BG: ,PAIN: ,GCS: , 12:20,BP: 220/112 M,PULSE: 140,RR: 16 R,SPO2: Ox,ETCO2: ,BG: ,PAIN: ,GCS: , 12:20,BP: / M,PULSE: ,RR: R,SPO2: Ox,ETCO2: ,BG: ,PAIN: ,GCS: 12, 12:25, cc Site: Antecubital-Left,Response: UnchangedSucceeded, [place] [address] EMS Patient Care Report Name: LEYLA COSTELLO Room: [address] IN .R.#: [id number] Admission: 09/13/20 Attend Phys: Jelani Caballero Discharge: Date of : 34 Report #: [id number] 12:25,BP: / M,PULSE: ,RR: R,SPO2: Ox,ETCO2: ,B,PAIN: ,GCS: , 12:28,BP: 216/112 M,PULSE: 142,RR: 16 R,SPO2: Ox,ETCO2: ,BG: ,PAIN: ,GCS: , 12:28,BP: / M,PULSE: ,RR: R,SPO2: Ox,ETCO2: ,BG: ,PAIN: ,GCS: 12, 12:29,Depart Scene 12:49,At Destination 13:35,Call Closed Disclaimer v1.1 Copyright 2020 [employer] This EMS Care Summary contains data elements from the applicable legal record (which may be displayed differently). It is designed to provide pertinent information for the following purposes: continuity of care, clinical quality, and state data reporting. The complete legal record is available to ED staff and administrators of the receiving hospital in [employer]'s Patient Tracker. All data is provided "as is."
[2020-09-13 13:08] VITALS: BP 176/111
[2020-09-13 13:13] LABS: URINE BILIRUBIN NEGATIVE (Negative); URINE BLOOD NEGATIVE (Negative); URINE CLARITY CLEAR; URINE COLOR YELLOW; URINE GLUCOSE-RANDOM TRACE (Negative); URINE KETONES NEGATIVE (Negative); URINE LEUKOCYTES-REFLEX NEGATIVE (Negative); URINE NITRITE-REFLEX NEGATIVE (Negative); URINE PROTEIN NEGATIVE (Negative); URINE UROBILINOGEN 0.2 E.U./dl (0.2-1.0)
[2020-09-13 13:46] LABS: HEMATOCRIT 43.9 % (37.0-47.0); HEMOGLOBIN 14.5 gm/dL (12.0-15.0); MCH 30.1 pg (26.0-34.0); MCHC 32.9 g/dL (28.0-37.0); MCV 91.4 fL (80.0-100.0); MPV 7.5 fl. (7.2-11.1); NUCLEATED RBCS 0 /100WBC; PLATELET COUNT* 173 thou/uL (150-400); RBC 4.81 mil/uL (4.20-5.00); RDW-CV 14.1 % (10.5-14.5)
[2020-09-13 13:55] LABS: CALCIUM 9.8 mg/dL (8.5-10.1); CREATININE 0.9 mg/dL (0.6-1.3); POTASSIUM 3.3 mmol/L (3.5-5.1)
[2020-09-13 14:01] LABS: APTT 22.4 Seconds (25.0-31.3); INR 1.2; PROTIME 12.3 Seconds (9.20-11.50)
[2020-09-13 14:06] LABS: ALBUMIN 2.6 g/dL (3.4-5.0); TOTAL BILIRUBIN 0.7 mg/dL (<0.1-1.0); TOTAL PROTEIN 6.8 g/dL (6.4-8.2)
[2020-09-13 14:13] LABS: ABSOLUTE LYMPHOCYTES 0.2 thou/uL (0.8-5.3); ABSOLUTE NEUTROPHILS 2.7 thou/uL (1.6-8.1)
[2020-09-13 14:14] LABS: PLATELET ESTIMATE ADEQUATE
[2020-09-13 14:15] LABS: CLUMPED PLTS OCCASIONAL
[2020-09-13 15:58] VITALS: BP 175/97
[2020-09-13 16:15] VITALS: BP 138/84
--- NOTE | 2020-09-13 16:15 | NUR ---
admit to 233 via cart patient max assist transfer bed to bed telephone report given prior to arrival patient lethargic oriented to and call light will need reorientation bed alarm on denies pain
[2020-09-13 16:16] LABS: INFLUENZA A ANTIGEN Negative (Negative); INFLUENZA B ANTIGEN Negative (Negative)
[2020-09-13 20:00] VITALS: BP 105/57
[2020-09-13 21:44] LABS: MAGNESIUM 1.8 mg/dL (1.8-2.4); PHOSPHORUS* 3.9 mg/dL (2.5-4.9)
[2020-09-14 00:40] VITALS: BP 117/63
[2020-09-14 04:12] LABS: ALBUMIN 1.9 g/dL (3.4-5.0); CALCIUM 9.6 mg/dL (8.5-10.1); CREATININE 1.3 mg/dL (0.6-1.3); TOTAL BILIRUBIN 0.5 mg/dL (<0.1-1.0); TOTAL PROTEIN 5.1 g/dL (6.4-8.2)
[2020-09-14 04:14] LABS: ABSOLUTE LYMPHOCYTES 0.6 thou/uL (0.8-5.3); ABSOLUTE MONOCYTES 0.2 thou/uL (0.0-1.2); ABSOLUTE NEUTROPHILS 1.5 thou/uL (1.6-8.1); BASOPHILS 0.4 %; EOSINOPHILS 0.1 %; HEMATOCRIT 40.4 % (37.0-47.0); LYMPHOCYTES 26.2 %; MCH 29.1 pg (26.0-34.0); MCV 90.9 fL (80.0-100.0); MONOCYTES 9.7 %; MPV 8.7 fl. (7.2-11.1); NUCLEATED RBCS 0 /100WBC; PLATELET COUNT* 102 thou/uL (150-400); POLYS 63.6 %; RBC 4.45 mil/uL (4.20-5.00); RDW-CV 14.1 % (10.5-14.5); WBC 2.3 thou/uL (4.0-11.0)
[2020-09-14 04:20] VITALS: BP 125/63
--- NOTE | 2020-09-14 04:56 | NUR ---
ASSUMED PT CARE AT APPROX 1930. 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 PT IS UNABLE TO ANSWER QUESTIONS. PT IS TRACING SR/ST ON THE DARKROOM TECHNICIAN. spO2 BETWEEN 92-97 ON 3-4L OF O2/NC. PT UNABLE TO COUGH EFFECTIVELY, PT IS SUCTIONED ORALLY. PT REMAINED INCONTINENT OF BOWEL, PT IS KEPT CLEAN AND DRY, REPOSITONED EVERY 2HRS. PT IS CLOSELY MONITORED.
[2020-09-14 08:00] VITALS: BP 99/53
--- NOTE | 2020-09-14 09:44 | EKG ---
[place] [address] ELECTROCARDIOGRAM REPORT Name: SARAH COSTELLO Room: [place] [address] ADM IN ..#: [id number] Admission: 09/13/20 Attend Phys: Joel Whitaker Discharge: Date of : 34 Date of Service: 09/13/20 1315 Report #: [id number] THIS REPORT FOR: //name// [facility] ED Test Date: 2020-09-13 Test Time: 13:15:20 Pat Name: SARAH COSTELLO Department: Room: [facility] Gender: F Tray Line Supervisor: OLIVIER : 1930 Requested By: Neo Murrieta Order Number: [id number] MD: Lewis Fonseca Measurements Intervals [place] Rate: 151 P: 98 MS: 113 QRS: 51 QRSD: 110 T: 264 QT: 301 QTc: 478 Interpretive Statements Supraventricular tachycardia Inferior infarct, age indeterminate ST depression, probably rate related Baseline wander in lead(s) V1,V6 Compared to ECG 08/04/2020 17:03:21 ST (T wave) deviation now present Sinus rhythm no longer present Myocardial infarct finding still present Electronically Signed On 09-14-2020 9:44:03 CDT by Lewis Fonseca [email or web address] <ELECTRONICALLY SIGNED> By: Lewis Fonseca MD, [facility] 09/14/20 0944 1315 1315 Lewis Fonseca MD, [facility] /EPI
[2020-09-14 11:39] VITALS: BP 100/61
--- NOTE | 2020-09-14 15:07 | NUR ---
ASSUMED CARE OF PATIENT THIS AM AT 0730. PATIENT IS ALERT, CONFUSED THIS AM. TELE SHOWS ST. DIET ORDERED BUT PATIENT HAD DIFFICULTY SWALLOWING WATER. PATIENT PLACED NPO AGAIN. ATTEMPTED ORAL SX. SPUTUM NOTED TO BE VERY THICK. PATIENT HAS A COARSE COUGH. ORDER FOR DEEP SX RECIEVED FROM DR LAGUNAS. PATIENT ASSISTED TO TURN Q 2 HR. SHE HAS BEEN INCONTINENT OF STOOL. IV FLUIDS INFUSING. WILL CONTINUE TO MONITOR LAB RESULTS. PCR NEGATIVE AND ISOLATION DISCONTINUED. WILL CONTINUE TO MONITOR.
[2020-09-14 15:50] VITALS: BP 108/52
[2020-09-14 20:00] VITALS: BP 137/68
[2020-09-15 00:37] VITALS: BP 125/65
[2020-09-15 04:43] LABS: ALBUMIN 1.5 g/dL (3.4-5.0); CALCIUM 9.7 mg/dL (8.5-10.1); POTASSIUM 3.5 mmol/L (3.5-5.1); TOTAL BILIRUBIN 0.6 mg/dL (<0.1-1.0); TOTAL PROTEIN 4.8 g/dL (6.4-8.2)
[2020-09-15 04:55] LABS: HEMATOCRIT 35.3 % (37.0-47.0); HEMOGLOBIN 11.6 gm/dL (12.0-15.0); MCH 29.7 pg (26.0-34.0); MCHC 32.8 g/dL (28.0-37.0); MCV 90.3 fL (80.0-100.0); MPV 9.1 fl. (7.2-11.1); RBC 3.91 mil/uL (4.20-5.00); RDW-CV 14.5 % (10.5-14.5)
[2020-09-15 05:02] LABS: WBC 8.6 thou/uL (4.0-11.0)
--- NOTE | 2020-09-15 05:04 | NUR ---
ASSUMED PT CARE AT APPROX 1930. PT IS LETAHRGIC,AROUSABLE WHEN NAME IS CALLED, ABLE TO ANSWER SIMPLE YES AND NO QUESTIONS. PT IS TRACING ST ON THE ENVIRONMENTAL PROGRAM MANAGER. NOTED TO HAVE COUPLE OF NON SUSTAINED SVT EPISODES WITH HR IN THE 160s AT AROUND 2323 AND 0320. PT REMAINED ASYMPTOMATIC. PT IS SUCTIONED ORALLY NEEDED. PT IS CLOSELY MONITORED. HIGH FALL PRECAUTIONS IN PLACE.
[2020-09-15 05:18] VITALS: BP 135/63
[2020-09-15 08:10] VITALS: BP 135/62
--- NOTE | 2020-09-15 09:24 | NUR ---
Pt on covid precautions. Spoke with dtr via phone. Pt resides at home with her son, son is Pt's pd caregiver through medicaid. Son assists with ADLs and completes IADLs. Pt is KAW, has dementia. Pt is partially blind. Pt has a commode, hospital bed and walker at home. Pt has home o2. Per dtr, Pt has declined over the last 3-4 months, has gotten gradually weaker, they have been unable to get her out of the house to the Dr. CM recommeded [facility] palliative care, dtr in agreement, CM faxed referral. Palliative care wants to come complete onsite if covid is negative, CM will update Katja [phone]. Hx of [facility]. Hx of skilled at [facility]. Goal is home with son at [place]. Following [facility] palliative care [phone]
[2020-09-15 12:00] VITALS: BP 113/56
--- NOTE | 2020-09-15 14:00 | NUR ---
ROSIE/MILI CALLED TO DISCUSS PT. SHE SAID SHE HAD RECEIVED A HOTLINE CALL ON PT. SHE WANTED TO COME TO VISIT AT SOME POINT WHILE PT.HERE. TOLD HER SHE IS LEGALLY BLIND AND HARD OF HEARING. HER PHONE THANG HYDE [phone]. ELISE SPOKE WITH SON CONNIE IN ROOM. HE SAID EVERY ONE ALWAYS CALLS MY SISTER BUT THEY SHOULD BE CALLING ME,SINCE SHE LIVES WITH ME. NOTIFIED HIM OF [facility] CALL. HE SAID I WANT TO BE HERE WHEN SHE COMES TO TALK WITH MY MOM LUIS CARLOS SHE CANT HEAR AND DOESN'T ALWAYS KNOW WHAT PEOPLE ARE TALKING ABOUT. PT.SLEPT DURING OUR CONVERSATION. HE SAID HE IS THERE WITH HER THE MAJORITY OF TIME. HE MAY RUN TO THE BANK OR STORE TO PICK SOMETHING UP BUT HE IS NEVER GONE MORE THAT ABOUT 30 MIN. ASKED IF HIS SISTER HELPED HIM WITH HER. HE SAID SHE ALWAYS HAS AN EXCUSE OF WHY SHE CAN'T COME. ELISE CALLED [facility] TO INFORM HER OF NEG COVID PCR. SHE WILL COME TO SEE PT.IN AM.
[2020-09-15 16:00] VITALS: BP 131/54
[2020-09-15 20:30] VITALS: BP 117/54
[2020-09-16 00:49] VITALS: BP 108/55
[2020-09-16 03:52] VITALS: BP 112/55
[2020-09-16 04:18] LABS: HEMATOCRIT 30.4 % (37.0-47.0); HEMOGLOBIN 10.1 gm/dL (12.0-15.0); MCH 29.9 pg (26.0-34.0); MCHC 33.1 g/dL (28.0-37.0); MCV 90.2 fL (80.0-100.0); MPV 9.1 fl. (7.2-11.1); RBC 3.37 mil/uL (4.20-5.00); RDW-CV 14.3 % (10.5-14.5); WBC 10.4 thou/uL (4.0-11.0)
[2020-09-16 04:48] LABS: ALBUMIN 1.4 g/dL (3.4-5.0); CALCIUM 9.7 mg/dL (8.5-10.1); CREATININE 0.8 mg/dL (0.6-1.3); TOTAL BILIRUBIN 0.7 mg/dL (<0.1-1.0); TOTAL PROTEIN 4.4 g/dL (6.4-8.2)
[2020-09-16 05:26] LABS: POTASSIUM 2.8 mmol/L (3.5-5.1)
[2020-09-16 08:00] VITALS: BP 130/64
[2020-09-16 11:51] VITALS: BP 95/44
--- NOTE | 2020-09-16 13:20 | NUR ---
ASSUMED PT CARE AT 0730, PT WASN'T RESPONDING TO ORIENTATION QUESTIONS THIS MORNING, BEING TURNED Q2H AND CLEANED UP WHEN INCONTINENT OF BM, SHERMAN IN PLACE. PT POTASSIUM CRITICALLY LOW LAST NIGHT, CURRENTLY ON 3RD BAG OF IV POTASSIUM PER ELECTROLYTE PROTOCOL. PT SON IN ROOM TODAY AND UPDATED ON POC. PT BEING FED BY NURSING STAFF AND OFFERED FLUIDS EVERY TIME WE GO IN THE ROOM, PT ORAL INTAKE LOW BUT HAS LET ME KNOW WHEN SHE WANTS TO EAT AND/OR DRINK. PT GOAL IS TO REMAIN FREE FROM SKIN BREAKDOWN AND INCREASE ORAL INTAKE. MEDS PER MAR, HOURLY ROUNDING OBSERVED, FALL PRECAUTIONS IN PLACE, CALL LIGHT W/IN REACH.
--- NOTE | 2020-09-16 14:00 | NUR ---
PT.MORE ALERT TODAY AND SPEAKING SOME. CONTINUES WITH IVF AND IVAB. NEEDS TO BE FED AND OFFERED WATER TO DRINK. SON AT BEDSIDE. HE CONTINUES TO WANT TO TAKE HER HOME AT DISCHARGE. LEFT MESSAGE AT [facility] OFFICE/ROSIE. SON MAY BE AGREEABLE TO HOME HEALTH AT DISCHARGE. HE SAID ASK ME ABOUT IT AGAIN WHEN SHES DISCHARGED. CM WILL FOLLOW FOR A SAFE DISCHARGE PLAN.
[2020-09-16 15:57] VITALS: BP 109/54
[2020-09-16 20:00] VITALS: BP 128/65
--- NOTE | 2020-09-16 20:00 | NUR ---
RECEIVED REPORT AND ASSUMED CARE OF PT, ASSESSMENT COMPLETED. PT KEEPING EYES CLOSED, WILL NOT ANSWER QUESTIONS BUT TALKING IN A FEW WORDS. HAVING MOIST CONGESTED COUGH, ABLE TO BRING UP THICK CLR TO YELLOW SPUTUM, YANKAR SUCTION AND SPITTING INTO TISSUE. O2 ON AT 2L/NC, CONT MONITORING. PT DOES NOT LIKE TO REPOSITIONED OR CARE GIVEN. TELEMETRY ON SHOWING SR. WILL CONT TO MONITOR AND ASSIST NEEDED.
[2020-09-17] VITALS (24 sets, daily range): BP systolic 117–194; BP diastolic 57–100
[2020-09-17 04:25] LABS: HEMATOCRIT 32.6 % (37.0-47.0); HEMOGLOBIN 10.9 gm/dL (12.0-15.0); MCH 30.2 pg (26.0-34.0); MCHC 33.3 g/dL (28.0-37.0); MCV 90.6 fL (80.0-100.0); RBC 3.6 mil/uL (4.20-5.00); RDW-CV 14.7 % (10.5-14.5); WBC 9.9 thou/uL (4.0-11.0)
[2020-09-17 04:59] LABS: ALBUMIN 1.4 g/dL (3.4-5.0); CALCIUM 11.1 mg/dL (8.5-10.1); CREATININE 0.7 mg/dL (0.6-1.3); POTASSIUM 3.6 mmol/L (3.5-5.1); TOTAL BILIRUBIN 0.6 mg/dL (<0.1-1.0); TOTAL PROTEIN 4.9 g/dL (6.4-8.2)
--- NOTE | 2020-09-17 05:49 | NUR ---
PT CONFUSED, UNCOOPERATIVE WITH REPOSITIONING. INCONT OF LIQ STOOL. BUTTOCK INFLAMMED, BARRIER CREAM APPLIED. CONT HAVING MOIST COUGH WITH THICK SPUTUM. NO CHANGE IN ASSESSMENT. TELEMETRY CONT TO SHOW SR. HS GOALS OF REST AND SAFETY ACHIEVED. HOURLY ROUNDING OBSERVED.
--- NOTE | 2020-09-17 07:15 | NUR ---
WAS IN ROOM WITH PT, CHANGING IVF, PT RESTLESS AND PUSHING ME AWAY. PT RECAME QUIET WITHOUT RESP. OTHER STAFF ENTERING ROOM STATING PT SAT WAS 48% AND HEART RYTHYM WAS DECREASING NOW 10'S. CODE CALLED, 2 COMPRESSIONS AND PT'S EYES OPENED AND BECAME RESTLESS AGAIN. HEART RATE BACK INTO 70'S, NRB APPLIED WITH O2 SAT 100%. DAUGHTER CORRY NOTIFIED, EXPLAINED SITUATION AND SPONTANEOUS RETURN OF RESP AND HR. DISCUSSED NO CODE, SHE STATED "MOM DID NOT HAVE DPOA BUT HAS SAID SHE DID NOT WANT COMPRESSIONS". DISCUSSED INTUBATION. DGT ASKING IF BOTH HER BROTHER AND HER COULD BE IN THE ROOM, PERMISSION GIVEN. ATTEMPTED TO GET AHOLD OF DR LAGUNAS WITHOUT A RETURN CALL. PT REMAINS AWAKE, ALERT AND FREQ REMOVING NON-REBREATHER.
--- NOTE | 2020-09-17 11:52 | NUR ---
Pt son, Stoney (DPOA), came in this morning and was upset that no one called him with the episode of asystole x2 last night. Pt gavino Vaishnavi and Dr Whitaker came in room to discuss plan of care. Family is discussing code status and possible palliative care options. Will continue to monitor.
--- NOTE | 2020-09-17 16:00 | NUR ---
PT.WENT ASYSTOLE ON MONITOR DURING THE NIGHT. AFTER ONLY 2 COMPRESSIONS SHE OPENED HER EYES. CARDIOLOGY CONSULTED AND APPLIED TEMPORARY PACEMAKER. TRANSFERRED TO ICU . WILL DISCUSS WITH FAMILY AND PT. ABOUT PERMANENT PACEMAKER ONCE PNA CLEARS,PER CARDIOLOGY RECOMMENDATIONS.
--- NOTE | 2020-09-17 19:50 | NUR ---
Assumed care of this patient after temp cath placed. Vitals as charted. Temp cath place to left subclavin rate set at 50. o2 at 2LNC tolerating well.
[2020-09-18] VITALS (36 sets, daily range): BP systolic 40–147; BP diastolic 22–62
--- NOTE | 2020-09-18 02:26 | NUR ---
PATIENT O2 SAT DECREASED TO 82%, ATTEMPTS TO INCREASE O2 ON NASAL CANNULA AND VENTIMASK INEFFECTIVE. PATIENT ON NRB MASK AT 15L/MIN. O2 SAT INCREASED TO 95%
--- NOTE | 2020-09-18 03:36 | NUR ---
SPOKE WITH PATIENT'S SON/DOPA. EXPLAINED THE DECOMPENSATION IN HER RESPIRATORY STATUS. SON AND DAUGHTER APPROVED TO COME SEE THE PATIENT AT THE BEDSIDE TONIGHT. BOTH CHILDREN ARE AT THE BEDSIDE NOW. EXPLAINED TO THE FAMILY WHAT HAPPENED AND WHAT NEXT STEPS WOULD BE IF THE PATIENT WERE TO DETERIORATE MORE. PATIENT'S SON WAS NOT OPEN TO ANY INFORMATION PRESENTED TO HIM AND WAS INCREASINGLY AGITATED WITH NURSING AND PHYSICIAN STAFF OVER THE PATIENT'S CONDITION. PATIENT'S DAUGHTER WAS MORE CALM AND UNDERSTANDING. FAMILY REMAINS IN THE ROOM AT THIS TIME.
[2020-09-18 05:02] LABS: HEMATOCRIT 38.5 % (37.0-47.0); HEMOGLOBIN 12.3 gm/dL (12.0-15.0); MCH 29.8 pg (26.0-34.0); RBC 4.14 mil/uL (4.20-5.00); RDW-CV 14.9 % (10.5-14.5)
[2020-09-18 05:26] LABS: ALBUMIN 1.6 g/dL (3.4-5.0); CALCIUM 11.7 mg/dL (8.5-10.1); CREATININE 0.8 mg/dL (0.6-1.3); POTASSIUM 4.3 mmol/L (3.5-5.1); TOTAL BILIRUBIN 0.5 mg/dL (<0.1-1.0)
--- NOTE | 2020-09-18 08:58 | NUR ---
4983 ASSUMED CARE OF PATIENT. PLEASE SEE DOCUMENTED ASSESSMENT. PT RESPONSIVE ONLY TO TOUCH AND PAIN. ON NRB OXYGEN MASK.
--- NOTE | 2020-09-18 08:59 | NUR ---
5436 DR MCKOY HERE AND HAS TALKED TO FAMILY. PT. IS NOW DNR STATUS. SON AND DAUGHTER IN TO VISIT
--- NOTE | 2020-09-18 09:10 | CARD ---
[address] [address] CARDIAC CATH REPORT Name: SARAH COSTELLO Room: [address] IN [facility]#: [id number] Admission: 09/13/20 Attend Phys: Jelani Caballero Discharge: Date of : 34 Report #: [id number] THIS REPORT FOR: cc: Maxime Lopes MD, Bruce D. MD Liston, Michael J. MD [facility] ~ ADDENDUM APPROVED REPORT Study performed: 09/17/2020 13:42:07 Patient Status: In-Patient Room #: Event Personnel: Leonardo Holly MANAGER TESTING Monitor, Makeda Lua RN RN, Aly Caballero RTR Scrub, Stoney Bah Landscaping Manager Exam: Temp Pacemaker Indications: Asystole The patient is a 89 year-old female with a history of Pneumonia, sepsis and an episode of asystole. Conscious Sedation Start time: 14:02 End Time: 14:25 Patient was brought to the slab worker for a temp pacemaker in the left subclavian vein. No sedation given. Implanted Devices: Temporary pacing wire. Procedure The patient underwent informed consent. We discussed the details of the procedure including the risks, which include, but not limited to bleeding, infection, vascular damage, cardiac perforation, and pneumothorax. After informed consent was obtained the patient was brought to the cardiac catheterization lab. The area of the left chest was prepped and draped in sterile fashion. Local anesthesia was achieved with 1% lidocaine. Using a micropuncture kit the left subclavian vein was accessed. Ultimately a 7 Citizen Of [place] introducer was placed. A temporary pacing wire was advanced to secure position within the right ventricular apex. Pacing threshold was checked and deemed to be satisfactory. The temporary lead was secured with the designated sheath to the introducer. The introducer was then secured with interrupted stitches of 2-0 silk. The patient tolerated the procedure [place] [address] CARDIAC CATH REPORT Name: SARAH COSTELLO Room: [address] IN [facility]#: [id number] Admission: 09/13/20 Attend Phys: Jelani Caballero Discharge: Date of : 34 Report #: [id number] Electrode Parameters Ventricular Threshold: 0.6 V at 0.40 ms. Findings 1. Episode of asystole. Conclusion 1. Successful placement of a temporary pacing wire. Recommendations 1. Set pacing rate at 50 bpm with an Ma of 10. <ELECTRONICALLY SIGNED> By: Stoney Bah MD, [facility] 09/18/20 0910 0910Micscot Bah MD, FACC /INF
--- NOTE | 2020-09-18 09:12 | CON ---
[address] [address] CONSULTATION Name: SARAH COSTELLO Room: [address] IN .R.#: [id number] Admission: 09/13/20 Attend Phys: Jelani Caballero Discharge: Date of : 34 Report #: [id number] THIS REPORT FOR: cc: Maxime Lopes MD, Bruce D. MD Liston, Michael J. MD FAC ~ CARDIOLOGY CONSULT INDICATION: Asystole. HISTORY OF PRESENT ILLNESS: The patient is an 89-year-old white female who was admitted to the hospital with altered mental status and pneumonia. The patient was also felt to have metabolic encephalopathy and UTI on admission. She has a history of COVID-19 infection in the past. Initial chest x-ray showed bilateral lung infiltrates, which now appears to be worse on the right than the left with pleural effusion. The patient has been receiving IV antibiotics and supportive care. This morning, she had an episode of asystole lasting approximately 40 seconds. The patient received a very brief period of chest compressions, after which she was aroused and had regained a normal heart rhythm with perfusion. Since that time, the patient has not had further compromise. She was noted on telemetry to be hypoxic at this time as well. PAST MEDICAL HISTORY: 1. Coronary artery disease with previous percutaneous coronary intervention. 2. Hip fracture. 3. Hypertension. 4. COPD. 5. Chronic bronchitis. 6. Legally blind. 7. Hyperlipidemia. 8. COVID infection. FAMILY HISTORY: Noncontributory. ALLERGIES: None documented. HOME MEDICATIONS: Alprazolam 3 mg daily, carvedilol 12.5 mg b.i.d., Toviaz 4 mg daily, vitamin 1 tablet daily. SOCIAL HISTORY: The patient is cared for by family. No tobacco or alcohol use. REVIEW OF SYSTEMS: [place] [address] CONSULTATION Name: SARAH COSTELLO Room: [address]#: [id number] Admission: 09/13/20 Attend Phys: Jelani Caballero Discharge: Date of : 34 Report #: [id number] PHYSICAL EXAMINATION: VITAL SIGNS: Blood pressure is 127/64, pulse 67 and regular. GENERAL: This is a frail elderly white female who does not appear to be in distress. She is arousable. HEENT: Head is normocephalic, atraumatic. Extraocular muscles intact. Mucous membranes dry. NECK: No jugular venous distention. CHEST: Coarse breath sounds bilaterally and throughout. CARDIAC: Regular rhythm without gallop or murmur. ABDOMEN: Scaphoid, soft, nontender. EXTREMITIES: No edema. SKIN: Dry. Telemetry monitoring shows a sinus rhythm. LABORATORY DATA: Reviewed. Sodium 146, potassium 3.6, chloride 110, bicarbonate 33, BUN 20, creatinine 0.7, serum glucose 109. Troponin on arrival 0.11. NT-proBNP on arrival 3318. White blood cell count 9.9, hemoglobin 10.9, platelet count 71,000. IMPRESSION AND RECOMMENDATIONS: 1. Asystole. Possibly hypoxia mediated. We will place temporary pacemaker at the patient's wishes at this time. Should the patient have significant recovery from her other significant illness of pneumonia, we will consider permanent pacemaker. 2. Heart failure. Appears to be acute on chronic. We will obtain echocardiogram to evaluate LV function. 3. History of coronary artery disease. Presently, clinically stable. Minimal troponin elevation, likely type 2 myocardial infarction due to strain. 4. History of hypertension. Blood pressure presently normal. 5. Pneumonia per hospitalist. <ELECTRONICALLY SIGNED> By: Stoney Bah MD, FACC 09/18/20 0912 [id number] Bah MD, FACC /nt
--- NOTE | 2020-09-18 12:49 | NUR ---
ICU rounds: Pt a DNR now. Temp pacer in. IVABX. Morphine PRN.
--- NOTE | 2020-09-18 14:30 | NUR ---
DAUGHTER CORRY HERE WHEN PATIENT AT 1244. CORRY HAD BEEN TRYING TO CALL HER BROTHER CONNIE WHO IS DPOA WITHOUT SUCCESS. CONSULTS NOTIFIED OF PT STATUS.
--- NOTE | 2020-09-18 14:40 | 2DMMODE ---
[place] [address] 2 D/M-MODE ECHOCARDIOGRAM Name: SARAH COSTELLO Room: [address] ADM IN [facility]#: [id number] Admission: 09/13/20 Attend Phys: Joel Whitaker Discharge: Date of : 34 Date of Service: 09/18/20 1440 Report #: [id number] THIS REPORT FOR: cc: Maxime Lopes MD, Bruce D. MD Blick,Lewis Asher MD [facility] ~ APPROVED REPORT Study performed: 09/18/2020 09:55:22 EXAM: Limited 2D Echocardiogram Patient Location: In-Patient Room #: [facility] Status: routine BSA: 1.53 HR: 69 bpm BP: 98/47 mmHg Rhythm: NSR Other Information Study Quality: Excellent Indications Dyspnea Fever Volumes Left Atrial Volume (Systole) LA ESV Index: 34.90 mL/m2 Left Ventricle The left ventricle is normal size. There is normal left ventricular wall thickness. The left ventricular systolic function is normal. The left ventricular ejection fraction is within the normal range. LVEF is 65-70%. Right Ventricle The right ventricle is normal size. The right ventricular systolic function is normal. Atria Left atrium is mildly dilated. The right atrium size is normal. Aortic Valve [address] [address] 2 D/M-MODE ECHOCARDIOGRAM Name: SARAH COSTELLO Room: [address] ADM IN M.R.#: [id number] Admission: 09/13/20 Attend Phys: Joel Whitaker Discharge: Date of : 34 Date of Service: 09/18/20 1440 Report #: [id number] Mild aortic valve sclerosis. Mitral Valve There is mitral annular calcification. The mitral valve is normal in structure. Tricuspid Valve The tricuspid valve is normal in structure. Pulmonic Valve Pulmonic valve is not well visualized. Great Vessels The aortic root is normal in size. IVC is not well visualized. Pericardium There is no pericardial effusion. <Conclusion> LVEF is 65-70%. Left atrium is mildly dilated. Mild aortic valve sclerosis. There is no pericardial effusion. <ELECTRONICALLY SIGNED> By: Lewis Fonseca MD, FACC 09/18/20 1440 39 39 Lewis Fonseca MD, FACC /INF
--- NOTE | 2020-09-18 14:49 | NUR ---
UNABLE TO REACH [place] ABOUT VERIFYING HOME AT THIS TIME. SPOKE WITH DAUGHTER CORRY ABOUT HOME. SHE ALSO HAS BEEN UNABLE TO REACH CONNIE BY PHONE. THIS NURSE HAS TRIED BOTH PHONE NUMBERS THAT HE HAS GIVEN US.
== END 2020-09-18 12:44 | DRG 871 ==
LOC: M.ERS 12:53 → M.ICU 14:06 → M.TBA-ER 14:06 → M.2W 14:06 → M.ICU 09-17 15:26
PROVIDERS: Emergency Medicine Emergency Medical Services; ADMIT Internal Medicine; ATTEND Internal Medicine
PROC: 5A1223Z Performance of Cardiac Pacing, Continuous (ICD-10-PCS; principal; 2020-09-17)
DX: A41.9 Sepsis, unspecified organism (principal); G93.41 Metabolic encephalopathy; J96.01 Acute respiratory failure with hypoxia; J15.6 Pneumonia due to other Gram-negative bacteria; I50.43 Acute on chronic combined systolic (congestive) and diastolic (congestive) heart failure; J44.0 Chronic obstructive pulmonary disease with (acute) lower respiratory infection; I46.9 Cardiac arrest, cause unspecified; Z20.822 Contact with and (suspected) exposure to COVID-19; I11.0 Hypertensive heart disease with heart failure; E78.5 Hyperlipidemia, unspecified; I25.10 Atherosclerotic heart disease of native coronary artery without angina pectoris; E87.6 Hypokalemia; Z87.81 Personal history of (healed) traumatic fracture; Z86.16 Personal history of COVID-19; Z95.5 Presence of coronary angioplasty implant and graft; Z87.891 Personal history of nicotine dependence